=== PATIENT | female | born 1935 | race Caucasian/White ===

== ENCOUNTER 2017-04-04 10:21 | Emergency (ER) | payer MEDICARE, BC ==
[2017-04-04] MEDS ORDERED: Sodium Chloride 0.9% 10 ML Syringe FLUSH PRN (11:04)
[2017-04-04] MEDS ORDERED: Sodium Chloride 0.9% 1,000 ML IV SCH (11:15)
[2017-04-04 11:46] VITALS: BP 168/75
[2017-04-04 12:17] LABS: CHLORIDE,CL 98 mmol/L (98-107); SODIUM,NA 135 mmol/L (136-145)
[2017-04-04] MEDS ORDERED: Iopamidol 612 MG/ML 100 ML Bottle IVPUSH ONE (12:35)
[2017-04-04] MEDS ORDERED: Sodium Chloride 0.9% 100 ML IV SCH (12:45)
--- NOTE | 2017-04-04 14:56 | EDM.PDOC ---
ED HPI GENERAL MEDICAL PROBLEM - General Chief Complaint: General Stated Complaint: dizziness Time Seen by Provider: 04/04/17 10:51 Source of Information: Reports: Patient History Limitations: Reports: No Limitations - History of Present Illness INITIAL COMMENTS - FREE TEXT/NARRATIVE: Patient presents with complaints of dizziness, abdominal pain, and back pain. All of these symptoms have been chronic at times. Her complaint today is the dizziness. Nothing makes it better or worse. Denies any syncope or near syncope. She follows with Magaly Kelley. She does have her gall bladder, appendix has been removed. She denies any chest pain, headaches, arm or jaw pain. States her abdominal pain is central to lower right and described as pressure. She reports occasional nausea with it. No change in eating habits. No unexplained weight loss. She denies [place], CVA, COPD, asthma, diabetes, does have hypertension. She smokes 3-4 cigarettes daily. No alcohol or drugs. Takes Flecainide for PSVT. Onset: Today Onset Date: 04/04/17 Duration: Chronic Location: Reports: Abdomen Quality: Reports: Pressure Severity: Moderate Associated Symptoms: Reports: Other (dizziness, abdominal pain) - Related Data Allergies Allergy/AdvReac Type Severity Reaction Status Date / Time Penicillins Allergy Rash Verified 04/04/17 11:03 Home Meds: Home Meds Aspirin 81 mg DAILY 04/04/17 [History] Bisacodyl [Correctol] 5 mg DAILY PRN 04/04/17 [History] Flecainide [Tambocor] 100 mg PO BID 04/04/17 [History] Meloxicam [Meloxicam] 15 mg DAILY 04/04/17 [History] Multivitamin [Multivitamins] 1 cap DAILY 04/04/17 [History] Valsartan/Hydrochlorothiazide [Valsartan-Hctz 80-12.5 mg Tab] 0.5 tab DAILY [History] Past Medical History HEENT History: Reports: Other (See Below) Other HEENT History: otalgia of left ear Cardiovascular History: Reports: Hypertension, Other (See Below) Other Cardiovascular History: PSVT Gastrointestinal History: Reports: Chronic Constipation Musculoskeletal History: Reports: Back Pain, Chronic, Osteoarthritis, Osteoporosis, Other (See Below) Other Musculoskeletal History: polio Psychiatric History: Reports: Anxiety, Depression, Other (See Below) Other Psychiatric History: dysthymic disorder - Past Surgical History GI Surgical History: Reports: Appendectomy Female Surgical History: Reports: Hysterectomy, Other (See Below) Other Female Surgeries/Procedures: lumpectomy of breast(benign) Oncologic Surgical History: Reports: Lumpectomy Social & Family History - Tobacco Use Smoking Status *Q: Current Every Day Smoker Years of Tobacco use: 35 Packs/Tins Daily: 0.5 - Recreational Drug Use Recreational Drug Use: No ED ROS GENERAL - Review of Systems Review Of Systems: See Below Constitutional: Reports: No Symptoms HEENT: Reports: No Symptoms Respiratory: Reports: No Symptoms Cardiovascular: Reports: Lightheadedness Endocrine: Reports: No Symptoms GI/Abdominal: Reports: Abdominal Pain : Reports: No Symptoms Musculoskeletal: Reports: Back Pain Skin: Reports: No Symptoms Neurological: Reports: Dizziness Psychiatric: Reports: No Symptoms Hematologic/Lymphatic: Reports: No Symptoms Immunologic: Reports: No Symptoms ED EXAM, GENERAL - Physical Exam Exam: See Below Exam Limited By: No Limitations General Appearance: Alert, WD/WN, No Apparent Distress Eye Exam: Bilateral Eye: EOMI, PERRL Ears: Normal TMs Throat/Mouth: Normal Inspection, Normal Oropharynx Head: Atraumatic, Normocephalic Neck: Normal Inspection, Supple, Non-Tender Respiratory/Chest: No Respiratory Distress, Lungs Clear, Normal Breath Sounds, No Accessory Muscle Use, Chest Non-Tender Cardiovascular: Normal Peripheral Pulses, Regular Rate, Rhythm, No Edema, No Murmur Peripheral Pulses: 2+: Posterior Tibial (L), Posterior Tibial (R), Dorsalis Pedis (L), Dorsalis Pedis (R) GI/Abdominal: Normal Bowel Sounds, Soft, Non-Tender Back Exam: Normal Inspection Extremities: Normal Inspection, Normal Range of Motion, Non-Tender, No Pedal Edema, Normal Capillary Refill Neurological: Alert, Oriented, CN II-XII Intact, Normal Cognition, Normal Gait, Normal Reflexes, No Motor/Sensory Deficits Psychiatric: Normal Affect, Normal Mood Skin Exam: Warm, Dry, Intact Lymphatic: No Adenopathy Course - Vital Signs Last Recorded V/S: Last Vital Signs Temp 36.0 C 04/04/17 10:25 Pulse 79 04/04/17 11:25 Resp 20 04/04/17 10:25 BP 168/75 H 04/04/17 11:25 Pulse Ox 95 04/04/17 10:25 - Orders/Labs/Meds Orders: Active Orders 24 hr Category Date Time Status EKG Documentation Completion [RC] ROUTINE Care 04/04/17 11:04 Ordered Abdomen Pelvis wo Cont [CT] Stat Exams 04/04/17 12:24 Ordered Ang Chest [CT] Stat Exams 04/04/17 12:24 Ordered Sodium Chloride 0.9% @ 150 MLS/HR (1000ml) Med 04/04/17 11:15 Ordered Sodium Chloride 0.9% [Normal Saline] 1,000 ml IV ASDIRECTED Sodium Chloride 0.9% [Normal Saline] 100 ml Med 04/04/17 12:45 Active IV ASDIRECTED Sodium Chloride 0.9% [Saline Flush] Med 04/04/17 11:04 Ordered 10 ml FLUSH ASDIRECTED PRN Saline Lock Insert [OM.PC] Routine Oth 04/04/17 11:04 Ordered Medication Orders Sodium Chloride (Normal Saline) 1,000 mls @ 150 mls/hr IV ASDIRECTED YASMIN Last Admin: 04/04/17 11:20 Dose: 150 mls/hr Sodium Chloride (Normal Saline) 100 mls @ 3 mls/sec IV ASDIRECTED YASMIN Last Admin: 04/04/17 13:15 Dose: 3 mls/sec Sodium Chloride (Saline Flush) 10 ml FLUSH ASDIRECTED PRN PRN Reason: Keep Vein Open Labs: Laboratory Tests 04/04/17 04/04/17 04/04/17 Range/Units 11:20 11:20 11:20 WBC 9.9 (4.0-10.0) x10^3/uL RBC 4.09 (4.00-5.50) x10^6/uL Hgb 13.0 (12.0-16.0) g/dL Hct 38.1 (33.0-47.0) % MCV 93.2 H (78.0-93.0) fL MCH 31.8 (26.0-32.0) pg MCHC 34.1 (32.0-36.0) g/dL RDW Coeff of Altagracia 12.4 (10.0-15.0) % Plt Count 397 (130-400) x10^3/uL Neut % (Auto) 83.6 H (50.0-80.0) % Lymph % (Auto) 9.1 L (25.0-50.0) % [place] % (Auto) 7.0 (2.0-11.0) % Eos % (Auto) 0.1 (0.0-4.0) % Baso % (Auto) 0.2 (0.2-1.2) % PT 10.0 (10.0-12.8) SEC INR 0.9 L (2.0-3.5) D-Dimer, Quantitative 1.55 H (<=0.58) mg/LFEU Sodium 135 L (136-145) mmol/L Potassium 4.6 (3.5-5.1) mmol/L Chloride 98 (98-107) mmol/L Carbon Dioxide 32 (21-32) mmol/L BUN 22 H (7-18) mg/dL Creatinine 0.9 (0.55-1.02) mg/dL Est Cr Clr Drug Dosing 34.51 mL/min Estimated GFR (MDRD) 60 Glucose 139 H (74-106) mg/dL Lactic Acid (0.4-2.0) mmol/L Calcium 9.1 (8.5-10.1) mg/dL Corrected Calcium 9.26 (8.5-10.1) mg/dL Magnesium (1.8-2.4) mg/dL Total Bilirubin 0.3 (0.2-1.0) mg/dL AST 28 (15-37) U/L ALT 30 (14-59) U/L Alkaline Phosphatase 123 H (46-116) U/L Creatine Kinase 65 (26-192) U/L Creatine Kinase Index TNP CK-MB (CK-2) TNP Troponin I < 0.017 (<=0.056) ng/mL C-Reactive Protein < 0.2 (<=0.9) mg/dL B-Natriuretic Peptide 526 H (<=450) pg/mL Total Protein 8.0 (6.4-8.2) g/dL Albumin 3.8 (3.4-5.0) g/dL Globulin 4.2 Albumin/Globulin Ratio 0.90 TSH, Ultra Sensitive 2.178 (0.358-3.74) uIU/mL 04/04/17 04/04/17 Range/Units 11:20 11:20 WBC (4.0-10.0) x10^3/uL RBC (4.00-5.50) x10^6/uL Hgb (12.0-16.0) g/dL Hct (33.0-47.0) % MCV (78.0-93.0) fL MCH (26.0-32.0) pg MCHC (32.0-36.0) g/dL RDW Coeff of Altagracia (10.0-15.0) % Plt Count (130-400) x10^3/uL Neut % (Auto) (50.0-80.0) % Lymph % (Auto) (25.0-50.0) % [place] % (Auto) (2.0-11.0) % Eos % (Auto) (0.0-4.0) % Baso % (Auto) (0.2-1.2) % PT (10.0-12.8) SEC INR (2.0-3.5) D-Dimer, Quantitative (<=0.58) mg/LFEU Sodium (136-145) mmol/L Potassium (3.5-5.1) mmol/L Chloride (98-107) mmol/L Carbon Dioxide (21-32) mmol/L BUN (7-18) mg/dL Creatinine (0.55-1.02) mg/dL Est Cr Clr Drug Dosing mL/min Estimated GFR (MDRD) Glucose (74-106) mg/dL Lactic Acid 1.4 (0.4-2.0) mmol/L Calcium (8.5-10.1) mg/dL Corrected Calcium (8.5-10.1) mg/dL Magnesium 1.9 (1.8-2.4) mg/dL Total Bilirubin (0.2-1.0) mg/dL AST (15-37) U/L ALT (14-59) U/L Alkaline Phosphatase (46-116) U/L Creatine Kinase (26-192) U/L Creatine Kinase Index CK-MB (CK-2) Troponin I (<=0.056) ng/mL C-Reactive Protein (<=0.9) mg/dL B-Natriuretic Peptide (<=450) pg/mL Total Protein (6.4-8.2) g/dL Albumin (3.4-5.0) g/dL Globulin Albumin/Globulin Ratio TSH, Ultra Sensitive (0.358-3.74) uIU/mL Meds: Medications Generic Name Dose Route Start Last Admin Trade Name Freq PRN Reason Stop Dose Admin Sodium Chloride 1,000 mls @ 150 mls/hr 04/04/17 11:15 04/04/17 11:20 Normal Saline IV 150 mls/hr ASDIRECTED YASMIN Administration Sodium Chloride 100 mls @ 3 mls/sec 04/04/17 12:45 04/04/17 13:15 Normal Saline IV 3 mls/sec ASDIRECTED YASMIN Administration Sodium Chloride 10 ml 04/04/17 11:04 Saline Flush FLUSH ASDIRECTED PRN Keep Vein Open Discontinued Medications Generic Name Dose Route Start Last Admin Trade Name Freq PRN Reason Stop Dose Admin Iopamidol 85 ml 04/04/17 12:35 04/04/17 13:10 Isovue-300 (61%) IVPUSH 04/04/17 12:36 85 ml ONETIME ONE Administration Departure - Departure Time of Disposition: 15:08 Disposition: Home, Self-Care 01 Condition: Good Clinical Impression: Dizziness, nonspecific, Abdominal pain in female patient, Pelvic cyst - Discharge Information Forms: ED Department Discharge Additional Instructions: MRI scheduled for 09 on Friday morning of the right pelvic cyst seen on your CT today. Results will be sent to Magaly Kelley. Please follow up with her or her supervising doctor. You may also try prilosec or nexium for 2-3 weeks to see if this helps your abdominal pain. Follow up with your primary concerning this as well. Your cardiac workup, PE workup, abdominal CT results all did not identify reasons for the dizziness or abdominal pain. Recommend follow up with your primary doctor with possible referrals to neurology and cardiology to rule out structural or electrical causes for your dizziness. There are times that a cause for dizziness just isn't found. Your electrolytes were largely normal. Please call us with any questions or concerns. - Problem List & Annotations (1) Abdominal pain in female patient SNOMED Code(s): 45685948 Code(s): R10.9 - UNSPECIFIED ABDOMINAL PAIN Status: Acute Priority: Low Current Visit: Yes (2) Dizziness, nonspecific SNOMED Code(s): 605343170, 086073611 Code(s): R42 - DIZZINESS AND GIDDINESS Status: Acute Priority: Low Current Visit: Yes - Problem List Review Problem List Initiated/Reviewed/Updated: Yes - My Orders Last 24 Hours: My Active Orders 04/04/17 11:04 EKG Documentation Completion [RC] ROUTINE Sodium Chloride 0.9% [Saline Flush] 10 ml FLUSH ASDIRECTED PRN Saline Lock Insert [OM.PC] Routine 04/04/17 11:15 Sodium Chloride 0.9% @ 150 MLS/HR (1000ml) Sodium Chloride 0.9% [Normal Saline] 1,000 ml IV ASDIRECTED 04/04/17 12:24 Abdomen Pelvis wo Cont [CT] Stat Ang Chest [CT] Stat 04/04/17 12:45 Sodium Chloride 0.9% [Normal Saline] 100 ml IV ASDIRECTED - Assessment/Plan Last 24 Hours: My Active Orders 04/04/17 11:04 EKG Documentation Completion [RC] ROUTINE Sodium Chloride 0.9% [Saline Flush] 10 ml FLUSH ASDIRECTED PRN Saline Lock Insert [OM.PC] Routine 04/04/17 11:15 Sodium Chloride 0.9% @ 150 MLS/HR (1000ml) Sodium Chloride 0.9% [Normal Saline] 1,000 ml IV ASDIRECTED 04/04/17 12:24 Abdomen Pelvis wo Cont [CT] Stat Ang Chest [CT] Stat 04/04/17 12:45 Sodium Chloride 0.9% [Normal Saline] 100 ml IV ASDIRECTED Assessment:: dizziness abdominal pain Plan: MRI scheduled for 0900 on Friday morning of the right pelvic cyst seen on your CT today. Results will be sent to Magaly Kelley. Please follow up with her or her supervising doctor. You may also try prilosec or nexium for 2-3 weeks to see if this helps your abdominal pain. Follow up with your primary concerning this as well. Your cardiac workup, PE workup, abdominal CT results all did not identify reasons for the dizziness or abdominal pain. Recommend follow up with your primary doctor with possible referrals to neurology and cardiology to rule out structural or electrical causes for your dizziness. There are times that a cause for dizziness just isn't found. Your electrolytes were largely normal. Please call us with any questions or concerns.
== END 2017-04-04 15:05 | disposition home or self-care (01) ==
LOC: VM.ED 10:21
DX: R42 Dizziness and giddiness (principal); N94.89 Other specified conditions associated with female genital organs and menstrual cycle; I10 Essential (primary) hypertension; K59.00 Constipation, unspecified; F17.210 Nicotine dependence, cigarettes, uncomplicated; M81.0 Age-related osteoporosis without current pathological fracture; M19.90 Unspecified osteoarthritis, unspecified site; G89.29 Other chronic pain; Z88.0 Allergy status to penicillin; Z79.82 Long term (current) use of aspirin; Z79.899 Other long term (current) drug therapy; Z98.890 Other specified postprocedural states; Z90.49 Acquired absence of other specified parts of digestive tract; Z90.710 Acquired absence of both cervix and uterus; Z90.10 Acquired absence of unspecified breast and nipple
CPT/HCPCS: 71275; 74176; 80053; 82550; 83605; 83735; 83880; 84443; 84484; 85025; 85379; 85610; 86140; 93005; 96360; 96361; 99284; J7030; J7050; Q9967

== ENCOUNTER 2019-05-12 07:53 | Inpatient (IN) | payer MEDICARE, BC ==
[2019-05-12] MEDS ORDERED: Sodium Chloride 0.9% 10 ML Syringe FLUSH PRN (08:12)
[2019-05-12] MEDS ORDERED: Sodium Chloride 0.9% 1,000 ML IV ONE (08:16)
[2019-05-12 09:04] LABS: CHLORIDE,CL 93 mmol/L (98-107); SODIUM,NA 130 mmol/L (136-145)
[2019-05-12] MEDS ORDERED: Iopamidol 612 MG/ML 100 ML Bottle IVPUSH ONE (09:21)
--- NOTE | 2019-05-12 09:28 | EDM.PDOC ---
ED HPI GENERAL MEDICAL PROBLEM - General Chief Complaint: General Stated Complaint: BREATHING ISSUES Time Seen by Provider: 05/12/19 08:00 Source of Information: Reports: Patient, Family History Limitations: Reports: No Limitations - History of Present Illness INITIAL COMMENTS - FREE TEXT/NARRATIVE: Pt. presents to ER with complaints of "not feeling well" and global weakness for several months. She denies any focal neuro symptoms such as unilateral weakness, Headache, or difficulty with speech/ambulation. Pt. also complains of mid upper abdominal pain. She states that she has been having bowel movements daily, but states that they are hard. Denies any loose stools or diarrhea. No fever or chills. No melena, hematochezia, or hematemesis. Pt. denies any chest pain or shortness of breath. No jaw, arm, neck or back pain. Family is concerned that the patient is unable to care for herself anymore. She has to go down on her backside when she uses stairs. They stated that the patient is been getting progressively weaker and they feel that the patient has been unable to take care of herself at home anymore, but state that she is weaker over the past 1-2 days. Onset: Today Onset Date: 05/11/19 Location: Reports: Abdomen, Generalized - Related Data Allergies Allergy/AdvReac Type Severity Reaction Status Date / Time Penicillins Allergy Rash Verified 05/12/19 08:12 Home Meds: Home Meds Aspirin 81 mg PO DAILY 04/04/17 [History] Bisacodyl [Correctol] 5 mg PO DAILY PRN 04/04/17 [History] Flecainide [Tambocor] 100 mg PO BID 04/04/17 [History] Meloxicam 7.5 mg PO DAILY 04/04/17 [History] Multivitamin [Multivitamins] 1 cap PO DAILY 04/04/17 [History] Hydrochlorothiazide [Microzide] 6.25 mg PO DAILY 05/12/19 [History] Past Medical History HEENT History: Reports: Other (See Below) Other HEENT History: otalgia of left ear Cardiovascular History: Reports: Hypertension, Other (See Below) Other Cardiovascular History: PSVT Gastrointestinal History: Reports: Chronic Constipation Musculoskeletal History: Reports: Back Pain, Chronic, Osteoarthritis, Osteoporosis, Other (See Below) Other Musculoskeletal History: polio Psychiatric History: Reports: Anxiety, Depression, Other (See Below) Other Psychiatric History: dysthymic disorder - Past Surgical History GI Surgical History: Reports: Appendectomy Female Surgical History: Reports: Hysterectomy, Other (See Below) Other Female Surgeries/Procedures: lumpectomy of breast(benign) Oncologic Surgical History: Reports: Lumpectomy Social & Family History - Tobacco Use Smoking Status *Q: Unknown Ever Smoked ED ROS GENERAL - Review of Systems Review Of Systems: See Below Constitutional: Reports: No Symptoms HEENT: Reports: No Symptoms Respiratory: Reports: No Symptoms Cardiovascular: Reports: No Symptoms Endocrine: Reports: No Symptoms GI/Abdominal: Reports: Abdominal Pain : Reports: No Symptoms Musculoskeletal: Reports: No Symptoms Skin: Reports: No Symptoms Neurological: Reports: Weakness Psychiatric: Reports: No Symptoms Hematologic/Lymphatic: Reports: No Symptoms Immunologic: Reports: No Symptoms ED EXAM, GENERAL - Physical Exam Exam: See Below Exam Limited By: No Limitations General Appearance: Alert, WD/WN, No Apparent Distress Eye Exam: Bilateral Eye: EOMI, Normal Fundi, Normal Inspection, PERRL Ears: Normal External Exam, Normal Canal, Hearing Grossly Normal, Normal TMs Ear Exam: Bilateral Ear: Auricle Normal, Canal Normal, TM normal Nose: Normal Inspection, No Blood Throat/Mouth: Normal Inspection, Normal Lips, Normal Oropharynx, Normal Voice, No Airway Compromise Head: Atraumatic, Normocephalic Neck: Normal Inspection, Supple, Non-Tender, Full Range of Motion Respiratory/Chest: No Respiratory Distress, Lungs Clear, Normal Breath Sounds, No Accessory Muscle Use, Chest Non-Tender Cardiovascular: Normal Peripheral Pulses, Regular Rate, Rhythm, No Edema, No Murmur Peripheral Pulses: 4+: Radial (L), Dorsalis Pedis (L), Dorsalis Pedis (R) GI/Abdominal: Soft, Non-Tender, No Organomegaly, No Distention, No Abnormal Bruit, Other (bowel sounds hyperactive) (Female) Exam: Deferred Rectal (Female) Exam: Deferred Back Exam: Normal Inspection, Full Range of Motion Extremities: Normal Inspection, Normal Range of Motion, Non-Tender, No Pedal Edema, Normal Capillary Refill Neurological: Alert, Oriented, CN II-XII Intact, Normal Cognition, Normal Gait, Normal Reflexes, No Motor/Sensory Deficits Psychiatric: Normal Affect, Anxious Skin Exam: Warm, Dry, Intact, Normal Color, No Rash Lymphatic: No Adenopathy EKG INTERPRETATION Rhythm: NSR [place]: Normal P-Wave: Present QRS: Normal ST-T: Normal QT: Normal Course - Vital Signs Last Recorded V/S: Last Vital Signs Temp 36.8 C 05/12/19 07:57 Pulse 100 05/12/19 07:57 Resp 20 05/12/19 07:57 BP 161/90 H 05/12/19 07:57 Pulse Ox 95 05/12/19 07:57 - Orders/Labs/Meds Orders: Active Orders 24 hr Category Date Time Status Patient Status [ADT] Routine ADT 05/12/19 10:36 Ordered EKG Documentation Completion [RC] STAT Care 05/12/19 08:15 Active Sodium Chloride 0.9% [Saline Flush] Med 05/12/19 08:12 Active 10 ml FLUSH ASDIRECTED PRN Peripheral IV Insertion Adult [OM.PC] Routine Oth 05/12/19 08:13 Ordered Medication Orders Sodium Chloride (Saline Flush) 10 ml FLUSH ASDIRECTED PRN PRN Reason: Keep Vein Open Labs: Laboratory Tests 05/12/19 05/12/19 05/12/19 Range/Units 08:25 08:25 08:25 WBC 14.5 H (4.0-10.0) x10^3/uL RBC 4.35 (4.00-5.50) x10^6/uL Hgb 13.9 (12.0-16.0) g/dL Hct 40.1 (33.0-47.0) % MCV 92.2 (78.0-93.0) fL MCH 32.0 (26.0-32.0) pg MCHC 34.7 (32.0-36.0) g/dL RDW Coeff of Altagracia 12.0 (10.0-15.0) % Plt Count 472 H D (130-400) x10^3/uL Neut % (Auto) 87.0 H (50.0-80.0) % Lymph % (Auto) 5.8 L (25.0-50.0) % Lyman % (Auto) 6.8 (2.0-11.0) % Eos % (Auto) 0.3 (0.0-4.0) % Baso % (Auto) 0.1 L (0.2-1.2) % PT 9.9 L (10.0-12.8) SEC INR 0.9 L (2.0-3.5) Sodium 130 L (136-145) mmol/L Potassium 5.0 (3.5-5.1) mmol/L Chloride 93 L (98-107) mmol/L Carbon Dioxide 31 (21-32) mmol/L Anion Gap 11.0 (10-20) mmol/L BUN 21 H (7-18) mg/dL Creatinine 1.1 H (0.55-1.02) mg/dL Est Cr Clr Drug Dosing TNP Estimated GFR (MDRD) 47 Glucose 156 H (74-106) mg/dL Calcium 10.2 H (8.5-10.1) mg/dL Corrected Calcium 10.60 H (8.5-10.1) mg/dL Phosphorus 3.9 (2.6-4.7) mg/dL Magnesium 1.8 (1.8-2.4) mg/dL Total Bilirubin 0.4 (0.2-1.0) mg/dL AST 30 (15-37) U/L ALT 37 (14-59) U/L Alkaline Phosphatase 154 H (46-116) U/L Troponin I < 0.017 (<=0.056) ng/mL C-Reactive Protein 3.0 H (<=0.9) mg/dL Total Protein 7.8 (6.4-8.2) g/dL Albumin 3.5 (3.4-5.0) g/dL Globulin 4.3 Albumin/Globulin Ratio 0.81 Amylase 66 (25-115) U/L Lipase 217 (73-393) U/L TSH, Ultra Sensitive 5.129 H (0.358-3.74) uIU/mL Urine Color (YELLOW) Urine Appearance (CLEAR) Urine pH (5.0-8.0) Ur Specific [place] Urine Protein (NEGATIVE) mg/dL Urine Glucose (UA) (NEGATIVE) mg/dL Urine Ketones (NEGATIVE) mg/dL Urine Occult Blood (NEGATIVE) Urine Nitrite (NEGATIVE) Urine Bilirubin (NEGATIVE) Urine Urobilinogen (0.2) EU/dL Ur Leukocyte Esterase (NEGATIVE) Urine RBC (NOT SEEN) /HPF Urine WBC (NOT SEEN) /HPF Ur Squamous Epith Cells (NEGATIVE) /HPF Urine Bacteria (NEGATIVE) /HPF Urine Mucus (NEGATIVE) /LPF 05/12/19 Range/Units 10:09 WBC (4.0-10.0) x10^3/uL RBC (4.00-5.50) x10^6/uL Hgb (12.0-16.0) g/dL Hct (33.0-47.0) % MCV (78.0-93.0) fL MCH (26.0-32.0) pg MCHC (32.0-36.0) g/dL RDW Coeff of Altagracia (10.0-15.0) % Plt Count (130-400) x10^3/uL Neut % (Auto) (50.0-80.0) % Lymph % (Auto) (25.0-50.0) % Lyman % (Auto) (2.0-11.0) % Eos % (Auto) (0.0-4.0) % Baso % (Auto) (0.2-1.2) % PT (10.0-12.8) SEC INR (2.0-3.5) Sodium (136-145) mmol/L Potassium (3.5-5.1) mmol/L Chloride (98-107) mmol/L Carbon Dioxide (21-32) mmol/L Anion Gap (10-20) mmol/L BUN (7-18) mg/dL Creatinine (0.55-1.02) mg/dL Est Cr Clr Drug Dosing Estimated GFR (MDRD) Glucose (74-106) mg/dL Calcium (8.5-10.1) mg/dL Corrected Calcium (8.5-10.1) mg/dL Phosphorus (2.6-4.7) mg/dL Magnesium (1.8-2.4) mg/dL Total Bilirubin (0.2-1.0) mg/dL AST (15-37) U/L ALT (14-59) U/L Alkaline Phosphatase (46-116) U/L Troponin I (<=0.056) ng/mL C-Reactive Protein (<=0.9) mg/dL Total Protein (6.4-8.2) g/dL Albumin (3.4-5.0) g/dL Globulin Albumin/Globulin Ratio Amylase (25-115) U/L Lipase (73-393) U/L TSH, Ultra Sensitive (0.358-3.74) uIU/mL Urine Color Yellow (YELLOW) Urine Appearance Cloudy H (CLEAR) Urine pH 6.5 (5.0-8.0) Ur Specific [place] 1.010 Urine Protein Negative (NEGATIVE) mg/dL Urine Glucose (UA) Negative (NEGATIVE) mg/dL Urine Ketones Negative (NEGATIVE) mg/dL Urine Occult Blood Trace-lysed H (NEGATIVE) Urine Nitrite Positive H (NEGATIVE) Urine Bilirubin Negative (NEGATIVE) Urine Urobilinogen 0.2 (0.2) EU/dL Ur Leukocyte Esterase Small H (NEGATIVE) Urine RBC 5-10 H (NOT SEEN) /HPF Urine WBC 10-20 H (NOT SEEN) /HPF Ur Squamous Epith Cells Few H (NEGATIVE) /HPF Urine Bacteria Moderate H (NEGATIVE) /HPF Urine Mucus Few H (NEGATIVE) /LPF Meds: Medications Generic Name Dose Route Start Last Admin Trade Name Freq PRN Reason Stop Dose Admin Sodium Chloride 10 ml 05/12/19 08:12 Saline Flush FLUSH ASDIRECTED PRN Keep Vein Open Discontinued Medications Generic Name Dose Route Start Last Admin Trade Name Freq PRN Reason Stop Dose Admin Ceftriaxone Sodium 2 gm 05/12/19 10:29 Rocephin IVPUSH 05/12/19 10:30 STAT ONE Sodium Chloride 1,000 mls @ 500 mls/hr 05/12/19 08:16 05/12/19 08:33 Normal Saline IV 05/12/19 10:15 500 mls/hr .BOLUS ONE Administration Iopamidol 100 ml 05/12/19 09:21 05/12/19 09:30 Isovue-300 (61%) IVPUSH 05/12/19 09:22 100 ml ONETIME ONE Administration - Radiology Interpretation Free Text/Narrative:: CT chest, abdomen and pelvis obtained. ? interstitial pneumonia. No infiltrate, failure pattern, nodules of masses noted. Malignancy vs. benign ulcers of stomach with inflammatory response. Mass in L breast. Departure - Departure Time of Disposition: 10:41 Disposition: Admitted As Inpatient 65 Clinical Impression: UTI (urinary tract infection), Hyponatremia - Discharge Information Referrals: Magaly Kelley PA-C [Primary Care Provider] - Forms: ED Department Discharge - Problem List Review Problem List Initiated/Reviewed/Updated: Yes - My Orders Last 24 Hours: My Active Orders 05/12/19 08:12 Sodium Chloride 0.9% [Saline Flush] 10 ml FLUSH ASDIRECTED PRN 05/12/19 08:13 Peripheral IV Insertion Adult [OM.PC] Routine 05/12/19 08:15 EKG Documentation Completion [RC] STAT 05/12/19 10:36 Patient Status [ADT] Routine - Assessment/Plan Last 24 Hours: My Active Orders 05/12/19 08:12 Sodium Chloride 0.9% [Saline Flush] 10 ml FLUSH ASDIRECTED PRN 05/12/19 08:13 Peripheral IV Insertion Adult [OM.PC] Routine 05/12/19 08:15 EKG Documentation Completion [RC] STAT 05/12/19 10:36 Patient Status [ADT] Routine Plan: Pt. will be admitted acutely. I spoke with Dr. Perez regarding the patient. The primary cause of her weakness is likely secondary to UTI and hyponatremia. The stomach ulceration and breast masses will require further imaging on an outpatient basis. She was given rocephin 2 gm IV. She will be given protonix 80mg IV. Discussed findings with patient and family. All questions were answered. Pt. is unsure of code status. Pt. advised that her children know and they will be returning shortly.
--- NOTE | 2019-05-12 09:52 | CR ---
[id number] RAD/RAD Abd Flat and Upright 2V EXAM: RAD Abd Flat and Upright 2V INDICATION: ABDOMINAL PAIN. COMPARISON: March 2017. DISCUSSION: Unobstructed bowel gas pattern. No radiographically evident pneumoperitoneum. Evaluation of lungs demonstrates sequela of chronic interstitial lung disease, as seen on CT from 2017. IMPRESSION: No acute findings in the abdomen. Alan Oro MD 05/12/19 0951 Thank you for allowing us to participate in the care of your patient.
--- NOTE | 2019-05-12 10:12 | CT ---
[id number] CT/CT Chest Abdomen Pelvis W IV EXAM: CHEST ABDOMEN AND PELVIS CT WITH CONTRAST INDICATION: Epigastric abdominal pain and elevated white blood cell count. COMPARISON: April 04, 2017. DISCUSSION: interstitial pneumonia pattern. Mild biapical paraseptal emphysema. Bronchial wall thickening. No infiltrates, nodule, or masses identified. No adenopathy. No pleural or pericardial effusion. Mild ectasia of the ascending aorta which is up to 3 5 mm in diameter. 10 mm retroareolar and 11 mm lower outer quadrant left breast masses are suggested. Consider diagnostic mammogram and ultrasound. Abdomen and pelvis: There is significant wall thickening and edema involving the lesser curvature of the stomach with at least 2 areas of apparent ulceration. These findings could relate to an ulcerated malignancy or ulcers with significant inflammatory reaction. There is infiltration of the surrounding fat and there is a small volume of free fluid in the left paracolic gutter and extending into the pelvis. No free air is identified. Scattered atherosclerotic plaque in the aorta and its major branches. Mild fatty infiltration of the liver is suggested. The pancreas, spleen, adrenal glands, kidneys and bowel are normal in appearance. Chronic remodeling of the femoral head and right acetabulum which could be from prior trauma or avascular necrosis. Right hip joint effusion, chronic subluxation and advanced degenerative changes. IMPRESSION: 1. Ulcerated malignancy versus benign ulcers of the lesser curvature of the stomach with inflammatory response. There is a small volume of free fluid in the adjacent left upper quadrant with extension into the left paracolic gutter and pelvis. 2. The left breast contains a couple of small enhancing masses. Consider dedicated diagnostic mammogram and ultrasound. Micah Quintero MD 05/12/19 1011 Thank you for allowing us to participate in the care of your patient.
[2019-05-12] MEDS ORDERED: cefTRIAXone 2 GM Vial IVPUSH ONE (10:29)
[2019-05-12] MEDS ORDERED: BISACODYL 5 MG PO PRN (11:35)
[2019-05-12] MEDS ORDERED: Carvedilol 12.5 MG Tab PO SCH (11:36)
[2019-05-12] MEDS ORDERED: Bisacodyl 5 MG Tab PO PRN (11:46)
[2019-05-12] MEDS: Pantoprazole 40 MG Tab.CR PO SCH (12:45)
[2019-05-12] MEDS ORDERED: Ondansetron 4 MG/2 ML SDV IV PRN (15:18)
[2019-05-12] MEDS ORDERED: HYDROmorphone 1 MG/ML Syringe IVPUSH PRN (15:18)
[2019-05-12] MEDS ORDERED: Acetaminophen 325 MG Tab PO PRN (15:18)
--- NOTE | 2019-05-12 15:31 | PCM.HP ---
H&P History of Present Illness - General Date of Service: 05/12/19 Admit Problem/Dx: Admission Diagnosis/Problem Admission Diagnosis/Problem UTI, Urinary tract infectious disease Source of Information: Patient, Old Records - History of Present Illness Initial Comments - Free Text/Narative: History of present illness: Patient was admitted from the ER for weakness and not feeling well largely NOS. This been going on for past number months. She generally feels more weak past week or two. She notes she's been having some stomach upset for past number of months. Denies any nausea vomiting or melena. Weight is remained pretty stable. She is on chronic meloxicam for osteoarthritis. Denies other NSAID use. Occasionally will take Tylenol with some relief. She is on chronic losartan and hydrochlorothiazide for blood pressure. She thinks these may be upsetting her stomach. She some chronic flecainide for remote history of SVT about 30 years ago. Stable for some time. Denies any cough dyspnea dysuria or fever. Past medical history: SVT, osteoporosis, hypertension, osteoarthritis, chronic smoking, low back pain, constipation. Medications: Flecainide meloxicam Susan lax losartan Hydrocort thiazide Duca lax multivitamin calcium with vitamin D. Allergy as reported as rash from penicillin. Smokes about a quarter pack per day. Lives alone but her family is nearby. Parents seem to largely of old age. She has one daughter who had ovarian cancer. Denies any family history of breast or GI cancer. Review of systems: Denies fever denies weight change denies chest pain denies dyspnea denies vomiting denies dysphasia some stomach upset but no abdominal pain really per se. Denies melena denies dysuria denies peripheral edema. Physical exam. Alert oriented no acute distress. Blood pressure running a bit high, oxygen temp pulse otherwise normal. Alert oriented no acute distress oral mucosa pink and moist heart and lungs clear to auscultation abdomen soft with just mild epigastric tenderness. Extremities warm well perfused without edema. She has pain-free range of motion bilateral hips and knees. CT and lab results were reviewed. Assessment and plan: #1. Chronic GI upset without melena vomiting or dysphasia. CT shows peptic ulcer disease versus possible mass in the stomach. DC meloxicam. Can use Tylenol as needed. Start Protonix. There is no sign of any active bleeding with this. We'll try to Hemoccult stool but this been going on for some time and she has no anemia. We have discussed that EGD would be recommended outpatient, so far she is reluctant to do any workup for this. #2. She has a mild hyponatremia which may be contributing some to her not feeling well. I would suspect this mostly from hydrochlorothiazide, ARB could be contributing. We'll discontinue these. Given her history of SVT will start beta adriana instead, coreg Monitor blood pressure which is a bit high currently. #3. Pyuria, nonspecific. Denies any dysuria. Rocephin okay for now. #4. Questionable mild pneumonitis by CT, asymptomatic, mild white count. Again is nonspecific. Rocephin per above. #5. Incidental L breast nodules by CT. She reports benign biopsy of this breast with benign lesions in the past. Last mammogram I have is from 2010. Again she is loath to do much for workup for this. I'll see if radiology can compare past mammogram to current CT somehow. Otherwise consider breast clinic referral based on her personal wishes. #6. 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 She is asymptomatic here as well. Unless she was having discomfort I don't see indication for ortho referral at this time. PT to eval gait. #7. Generalized weakness. We will have PT evaluate her. We'll have healthcare social worker evaluate her situation otherwise she seems completely mentally fit, would presume she will return to her home environment. #8. I feel DVT prophylaxis is probably culture ended complicated currently by her probable peptic ulcer disease along with the fact that she seems to be basically at her baseline of activity level. - Related Data Allergies/Adverse Reactions: Allergies Allergy/AdvReac Type Severity Reaction Status Date / Time Penicillins Allergy Rash Verified 05/12/19 08:12 Home Medications: Home Meds Bisacodyl [Correctol] 5 mg PO DAILY PRN 04/04/17 [History] Flecainide [Tambocor] 100 mg PO BID 04/04/17 [History] Meloxicam 7.5 mg PO DAILY 04/04/17 [History] Multivitamin [Multivitamins] 1 cap PO DAILY 04/04/17 [History] Calcium Carbonate/Vitamin D3 [Calcium Carbonate/Vitamin D 600 MG-200 Unit] 1 tab PO BID 05/12/19 [History] Hydrochlorothiazide [Microzide] 6.25 mg PO DAILY 05/12/19 [History] Losartan [Cozaar] 50 mg PO DAILY 05/12/19 [History] Polyethylene Glycol 3350 [MiraLAX] 2 tbs PO DAILY 05/12/19 [History] Past Medical History HEENT History: Reports: Other (See Below) Other HEENT History: otalgia of left ear Cardiovascular History: Reports: Hypertension, Other (See Below) Other Cardiovascular History: PSVT Gastrointestinal History: Reports: Chronic Constipation Musculoskeletal History: Reports: Back Pain, Chronic, Osteoarthritis, Osteoporosis, Other (See Below) Other Musculoskeletal History: polio Psychiatric History: Reports: Anxiety, Depression, Other (See Below) Other Psychiatric History: dysthymic disorder - Past Surgical History GI Surgical History: Reports: Appendectomy Female Surgical History: Reports: Hysterectomy, Other (See Below) Other Female Surgeries/Procedures: lumpectomy of breast(benign) Oncologic Surgical History: Reports: Lumpectomy Social & Family History - Family History Family Medical History: Noncontributory - Tobacco Use Smoking Status *Q: Unknown Ever Smoked Years of Tobacco use: 50 Packs/Tins Daily: 1 Used Tobacco, but Quit: No - Caffeine Use Caffeine Use: Reports: Coffee - Recreational Drug Use Recreational Drug Use: No H&P Review of Systems - Review of Systems: Review Of Systems: See Below Exam - Exam Exam: See Below - Vital Signs Vital Signs: Last Vital Signs Temp 37.4 C 05/12/19 14:00 Pulse 80 05/12/19 14:00 Resp 16 05/12/19 14:00 BP 121/69 05/12/19 14:00 Pulse Ox 95 05/12/19 14:00 Weight: 42.638 kg - Patient Data Lab Results Last 24 hrs: Laboratory Results - last 24 hr 05/12/19 05/12/19 05/12/19 Range/Units 08:25 08:25 08:25 WBC 14.5 H (4.0-10.0) x10^3/uL RBC 4.35 (4.00-5.50) x10^6/uL Hgb 13.9 (12.0-16.0) g/dL Hct 40.1 (33.0-47.0) % MCV 92.2 (78.0-93.0) fL MCH 32.0 (26.0-32.0) pg MCHC 34.7 (32.0-36.0) g/dL RDW Coeff of Altagracia 12.0 (10.0-15.0) % Plt Count 472 H D (130-400) x10^3/uL Neut % (Auto) 87.0 H (50.0-80.0) % Lymph % (Auto) 5.8 L (25.0-50.0) % [place] % (Auto) 6.8 (2.0-11.0) % Eos % (Auto) 0.3 (0.0-4.0) % Baso % (Auto) 0.1 L (0.2-1.2) % PT 9.9 L (10.0-12.8) SEC INR 0.9 L (2.0-3.5) Sodium 130 L (136-145) mmol/L Potassium 5.0 (3.5-5.1) mmol/L Chloride 93 L (98-107) mmol/L Carbon Dioxide 31 (21-32) mmol/L Anion Gap 11.0 (10-20) mmol/L BUN 21 H (7-18) mg/dL Creatinine 1.1 H (0.55-1.02) mg/dL Est Cr Clr Drug Dosing TNP Estimated GFR (MDRD) 47 Glucose 156 H (74-106) mg/dL Calcium 10.2 H (8.5-10.1) mg/dL Corrected Calcium 10.60 H (8.5-10.1) mg/dL Phosphorus 3.9 (2.6-4.7) mg/dL Magnesium 1.8 (1.8-2.4) mg/dL Total Bilirubin 0.4 (0.2-1.0) mg/dL AST 30 (15-37) U/L ALT 37 (14-59) U/L Alkaline Phosphatase 154 H (46-116) U/L Troponin I < 0.017 (<=0.056) ng/mL C-Reactive Protein 3.0 H (<=0.9) mg/dL Total Protein 7.8 (6.4-8.2) g/dL Albumin 3.5 (3.4-5.0) g/dL Globulin 4.3 Albumin/Globulin Ratio 0.81 Amylase 66 (25-115) U/L Lipase 217 (73-393) U/L TSH, Ultra Sensitive 5.129 H (0.358-3.74) uIU/mL Urine Color (YELLOW) Urine Appearance (CLEAR) Urine pH (5.0-8.0) Ur Specific [place] Urine Protein (NEGATIVE) mg/dL Urine Glucose (UA) (NEGATIVE) mg/dL Urine Ketones (NEGATIVE) mg/dL Urine Occult Blood (NEGATIVE) Urine Nitrite (NEGATIVE) Urine Bilirubin (NEGATIVE) Urine Urobilinogen (0.2) EU/dL Ur Leukocyte Esterase (NEGATIVE) Urine RBC (NOT SEEN) /HPF Urine WBC (NOT SEEN) /HPF Ur Squamous Epith Cells (NEGATIVE) /HPF Urine Bacteria (NEGATIVE) /HPF Urine Mucus (NEGATIVE) /LPF 05/12/19 Range/Units 10:09 WBC (4.0-10.0) x10^3/uL RBC (4.00-5.50) x10^6/uL Hgb (12.0-16.0) g/dL Hct (33.0-47.0) % MCV (78.0-93.0) fL MCH (26.0-32.0) pg MCHC (32.0-36.0) g/dL RDW Coeff of Altagracia (10.0-15.0) % Plt Count (130-400) x10^3/uL Neut % (Auto) (50.0-80.0) % Lymph % (Auto) (25.0-50.0) % [place] % (Auto) (2.0-11.0) % Eos % (Auto) (0.0-4.0) % Baso % (Auto) (0.2-1.2) % PT (10.0-12.8) SEC INR (2.0-3.5) Sodium (136-145) mmol/L Potassium (3.5-5.1) mmol/L Chloride (98-107) mmol/L Carbon Dioxide (21-32) mmol/L Anion Gap (10-20) mmol/L BUN (7-18) mg/dL Creatinine (0.55-1.02) mg/dL Est Cr Clr Drug Dosing Estimated GFR (MDRD) Glucose (74-106) mg/dL Calcium (8.5-10.1) mg/dL Corrected Calcium (8.5-10.1) mg/dL Phosphorus (2.6-4.7) mg/dL Magnesium (1.8-2.4) mg/dL Total Bilirubin (0.2-1.0) mg/dL AST (15-37) U/L ALT (14-59) U/L Alkaline Phosphatase (46-116) U/L Troponin I (<=0.056) ng/mL C-Reactive Protein (<=0.9) mg/dL Total Protein (6.4-8.2) g/dL Albumin (3.4-5.0) g/dL Globulin Albumin/Globulin Ratio Amylase (25-115) U/L Lipase (73-393) U/L TSH, Ultra Sensitive (0.358-3.74) uIU/mL Urine Color Yellow (YELLOW) Urine Appearance Cloudy H (CLEAR) Urine pH 6.5 (5.0-8.0) Ur Specific [place] 1.010 Urine Protein Negative (NEGATIVE) mg/dL Urine Glucose (UA) Negative (NEGATIVE) mg/dL Urine Ketones Negative (NEGATIVE) mg/dL Urine Occult Blood Trace-lysed H (NEGATIVE) Urine Nitrite Positive H (NEGATIVE) Urine Bilirubin Negative (NEGATIVE) Urine Urobilinogen 0.2 (0.2) EU/dL Ur Leukocyte Esterase Small H (NEGATIVE) Urine RBC 5-10 H (NOT SEEN) /HPF Urine WBC 10-20 H (NOT SEEN) /HPF Ur Squamous Epith Cells Few H (NEGATIVE) /HPF Urine Bacteria Moderate H (NEGATIVE) /HPF Urine Mucus Few H (NEGATIVE) /LPF Result Diagrams: 05/12/19 08:25 05/12/19 08:25 *Q Meaningful Use (ADM) - VTE *Q VTE Anticoagulation Contraindications: Medical/Procedure Contrai Problem List Initiated/Reviewed/Updated: Yes Orders Last 24hrs: Active Orders 24 hr Category Date Time Status Patient Status [ADT] Routine ADT 05/12/19 10:36 Active Patient Status [ADT] Routine ADT 05/12/19 15:18 Ordered EKG Documentation Completion [RC] STAT Care 05/12/19 08:15 Active Oxygen Therapy [RC] PRN Care 05/12/19 15:18 Ordered Up ad Mila [RC] ASDIRECTED Care 05/12/19 15:18 Ordered VTE/DVT Education [RC] PER UNIT ROUTINE Care 05/12/19 15:18 Ordered Vital Signs [RC] Q4H Care 05/12/19 15:18 Ordered Consult to Case Management/Lease Picker [CONS] Cons 05/12/19 15:18 Ordered Routine PT Evaluation and Treatment [CONS] Routine Cons 05/12/19 15:18 Ordered Regular Diet [DIET] Diet 05/12/19 Dinner Ordered BASIC METABOLIC PANEL,BMP [CHEM] AM Lab 05/13/19 05:11 Ordered CBC WITH AUTO DIFF [HEME] AM Lab 05/13/19 05:11 Ordered MAGNESIUM [CHEM] AM Lab 05/13/19 05:11 Ordered Acetaminophen [Tylenol] Med 05/12/19 15:18 Ordered 650 mg PO Q4H PRN Bisacodyl [Dulcolax] Med 05/12/19 11:46 Active 5 mg PO DAILY PRN Calcium Carbonate/Vitamin D3 [Calcium Carbonate/Vitamin Med 05/12/19 20:00 Active D 1250 MG-200 Unit] 1 tab PO BID Carvedilol [Coreg] Med 05/12/19 18:00 Active 12.5 mg PO BIDMEALS Flecainide [Tambocor] Med 05/12/19 20:00 Active 100 mg PO BID HYDROmorphone [Dilaudid] Med 05/12/19 15:18 Ordered 0.25 mg IVPUSH Q2H PRN Ondansetron [Zofran] Med 05/12/19 15:18 Ordered 4 mg IV Q4H PRN Pantoprazole [ProTONIX] Med 05/12/19 11:40 Active 40 mg PO ACBREAKFAST Polyethylene Glycol 3350 [MiraLAX] Med 05/13/19 08:00 Active 17 gm PO DAILY Sodium Chloride 0.9% [Saline Flush] Med 05/12/19 08:12 Active 10 ml FLUSH ASDIRECTED PRN cefTRIAXone [Rocephin] Med 05/13/19 08:00 Active 1 gm IVPUSH DAILY Anticoagulation Contraindications VTE [AST] Per Unit Oth 05/12/19 15:18 Ordered Routine Peripheral IV Insertion Adult [OM.PC] Routine Oth 05/12/19 08:13 Ordered Resuscitation Status Routine Resus Stat 05/12/19 15:18 Ordered Medication Orders Acetaminophen (Tylenol) 650 mg PO Q4H PRN PRN Reason: Pain (Mild 1-3)/fever Bisacodyl (Dulcolax) 5 mg PO DAILY PRN PRN Reason: Constipation Calcium Carbonate (Calcium Carbonate/Vitamin D 1250 Mg-200 Unit) 1 tab PO BID [facility] Carvedilol (Coreg) 12.5 mg PO BIDMEALS [facility] Ceftriaxone Sodium (Rocephin) 1 gm IVPUSH DAILY [facility] Flecainide Acetate (Tambocor) 100 mg PO BID [facility] Hydromorphone HCl (Dilaudid) 0.25 mg IVPUSH Q2H PRN PRN Reason: Pain (severe 7-10) Ondansetron HCl (Zofran) 4 mg IV Q4H PRN PRN Reason: Nausea/Vomiting Pantoprazole Sodium (Protonix) 40 mg PO ACBREAKFAST [facility] Last Admin: 05/12/19 12:45 Dose: 40 mg Polyethylene Glycol (Miralax) 17 gm PO DAILY [facility] Sodium Chloride (Saline Flush) 10 ml FLUSH ASDIRECTED PRN PRN Reason: Keep Vein Open
[2019-05-12] MEDS: Carvedilol 12.5 MG Tab PO SCH (19:01)
[2019-05-12] MEDS: Flecainide 50 MG Tab PO SCH (20:14)
[2019-05-12] MEDS: Calcium Carbonate/Vitamin D3 1250 MG-200 Unit Tab PO SCH (20:15)
[2019-05-13 06:59] LABS: ANION GAP 11.3 mmol/L (10-20)
[2019-05-13] MEDS: cefTRIAXone 1 GM Vial IVPUSH SCH (07:37)
[2019-05-13] MEDS: Calcium Carbonate/Vitamin D3 1250 MG-200 Unit Tab PO SCH ×2 (07:37→20:42)
[2019-05-13] MEDS: Flecainide 50 MG Tab PO SCH ×2 (07:37→20:41)
[2019-05-13] MEDS: Carvedilol 12.5 MG Tab PO SCH (07:38)
[2019-05-13] MEDS: Pantoprazole 40 MG Tab.CR PO SCH (07:38)
[2019-05-13] MEDS: Polyethylene Glycol 3350 Powder 17 GM Packet PO SCH (07:39)
--- NOTE | 2019-05-13 09:19 | PCM.PN ---
- General Info Date of Service: 05/13/19 Admission Dx/Problem (Free Text): Patient is doing good. She denies any fever or dysuria cough or dyspnea. Stomach is doing better. Hasn't passed any bowel movements. No vomiting. Blood pressure running a bit low after we switched her medicine. Hasn't been walking around too much, PT hasn't been by. Blood pressures running 90s over 60s she's been afebrile her oxygen and pulse are normal. Heart and lungs clear to auscultation abdomen soft nontender chimneys warm well perfused. #1. Chronic GI upset peptic ulcer disease versus possible neoplasia. Stop meloxicam, Tylenol as needed, continue Protonix, we'll try to Hemoccult stool but no BMs here does not appear to be actively bleeding. We'll follow-up with PCP outpatient discussed EGD. #2. Hyponatremia has improved with stopping hydrochlorothiazide and are better. Blood pressure running a bit low on Coreg we will decrease dose to 6.25 twice a day #3. Her pyuria and possible pneumonitis by CT or nonspecific. Continue Rocephin for now, if she completes three or four doses here this should be enough and in asymptomatic afebrile patient. #4. Incidental breast nodules. She notes some history of this. She'll need to review with her primary. #5. Incidental hip effusion, again asymptomatic, unknown clinical significance. - Patient Data Vitals - Most Recent: Last Vital Signs Temp 36.9 C 05/13/19 06:00 Pulse 62 05/13/19 07:38 Resp 16 05/13/19 06:00 BP 102/54 L 05/13/19 07:38 Pulse Ox 93 L 05/13/19 06:00 Weight - Most Recent: 42.638 kg I&O - Last 24 Hours: Intake & Output 05/12/19 05/13/19 05/13/19 22:59 06:59 14:59 Intake Total 200 1899 240 Output Total 400 400 Balance -200 1499 240 Lab Results Last 24 Hours: Laboratory Results - last 24 hr 05/12/19 05/13/19 05/13/19 Range/Units 10:09 06:20 06:20 WBC 9.8 (4.0-10.0) x10^3/uL RBC 3.74 L (4.00-5.50) x10^6/uL Hgb 12.1 D (12.0-16.0) g/dL Hct 34.7 (33.0-47.0) % MCV 92.8 (78.0-93.0) fL MCH 32.4 H (26.0-32.0) pg MCHC 34.9 (32.0-36.0) g/dL RDW Coeff of Altagracia 11.9 (10.0-15.0) % Plt Count 416 H (130-400) x10^3/uL Neut % (Auto) 71.6 (50.0-80.0) % Lymph % (Auto) 15.5 L (25.0-50.0) % [place] % (Auto) 11.3 H (2.0-11.0) % Eos % (Auto) 1.3 (0.0-4.0) % Baso % (Auto) 0.3 (0.2-1.2) % Sodium 134 L (136-145) mmol/L Potassium 5.3 H (3.5-5.1) mmol/L Chloride 98 (98-107) mmol/L Carbon Dioxide 30 (21-32) mmol/L Anion Gap 11.3 (10-20) mmol/L BUN 24 H (7-18) mg/dL Creatinine 1.1 H (0.55-1.02) mg/dL Est Cr Clr Drug Dosing 25.62 mL/min Estimated GFR (MDRD) 47 Glucose 90 (74-106) mg/dL Calcium 9.3 (8.5-10.1) mg/dL Magnesium 1.8 (1.8-2.4) mg/dL Urine Color Yellow (YELLOW) Urine Appearance Cloudy H (CLEAR) Urine pH 6.5 (5.0-8.0) Ur Specific [place] 1.010 Urine Protein Negative (NEGATIVE) mg/dL Urine Glucose (UA) Negative (NEGATIVE) mg/dL Urine Ketones Negative (NEGATIVE) mg/dL Urine Occult Blood Trace-lysed H (NEGATIVE) Urine Nitrite Positive H (NEGATIVE) Urine Bilirubin Negative (NEGATIVE) Urine Urobilinogen 0.2 (0.2) EU/dL Ur Leukocyte Esterase Small H (NEGATIVE) Urine RBC 5-10 H (NOT SEEN) /HPF Urine WBC 10-20 H (NOT SEEN) /HPF Ur Squamous Epith Cells Few H (NEGATIVE) /HPF Urine Bacteria Moderate H (NEGATIVE) /HPF Urine Mucus Few H (NEGATIVE) /LPF Med Orders - Current: Current Medications Acetaminophen (Tylenol) 650 mg PO Q4H PRN PRN Reason: Pain (Mild 1-3)/fever Bisacodyl (Dulcolax) 5 mg PO DAILY PRN PRN Reason: Constipation Calcium Carbonate (Calcium Carbonate/Vitamin D 1250 Mg-200 Unit) 1 tab PO BID [facility] Last Admin: 05/13/19 07:37 Dose: 1 tab Carvedilol (Coreg) 6.25 mg PO BIDMEALS [facility] Ceftriaxone Sodium (Rocephin) 1 gm IVPUSH DAILY [facility] Last Admin: 05/13/19 07:37 Dose: 1 gm Flecainide Acetate (Tambocor) 100 mg PO BID [facility] Last Admin: 05/13/19 07:37 Dose: 100 mg Hydromorphone HCl (Dilaudid) 0.25 mg IVPUSH Q2H PRN PRN Reason: Pain (severe 7-10) Ondansetron HCl (Zofran) 4 mg IV Q4H PRN PRN Reason: Nausea/Vomiting Pantoprazole Sodium (Protonix) 40 mg PO ACBREAKFAST [facility] Last Admin: 05/13/19 07:38 Dose: 40 mg Polyethylene Glycol (Miralax) 17 gm PO DAILY [facility] Last Admin: 05/13/19 07:39 Dose: 17 gm Sodium Chloride (Saline Flush) 10 ml FLUSH ASDIRECTED PRN PRN Reason: Keep Vein Open Discontinued Medications Carvedilol (Coreg) 12.5 mg PO BIDM [facility] Last Admin: 05/12/19 18:56 Dose: Not Given Carvedilol (Coreg) 12.5 mg PO BIDMEALS [facility] Last Admin: 05/13/19 07:38 Dose: 12.5 mg Ceftriaxone Sodium (Rocephin) 2 gm IVPUSH STAT ONE Stop: 05/12/19 10:30 Last Admin: 05/12/19 10:40 Dose: 2 gm Sodium Chloride (Normal Saline) 1,000 mls @ 500 mls/hr IV .BOLUS ONE Stop: 05/12/19 10:15 Last Admin: 05/12/19 08:33 Dose: 500 mls/hr Iopamidol (Isovue-300 (61%)) 100 ml IVPUSH ONETIME ONE Stop: 05/12/19 09:22 Last Admin: 05/12/19 09:30 Dose: 100 ml Non-Formulary Medication (Bisacodyl [Correctol]) 5 mg PO DAILY PRN PRN Reason: Constipation - Problem List Review Problem List Initiated/Reviewed/Updated: Yes - My Orders Last 24 Hours: My Active Orders 05/12/19 11:40 Pantoprazole [ProTONIX] 40 mg PO ACBREAKFAST 05/12/19 11:46 Bisacodyl [Dulcolax] 5 mg PO DAILY PRN 05/12/19 15:18 Patient Status [ADT] Routine Oxygen Therapy [RC] PRN Up ad Mila [RC] ASDIRECTED VTE/DVT Education [RC] PER UNIT ROUTINE Vital Signs [RC] Q4H Consult to Case Management/Steam Room Attendant [CONS] Routine PT Evaluation and Treatment [CONS] Routine Acetaminophen [Tylenol] 650 mg PO Q4H PRN HYDROmorphone [Dilaudid] 0.25 mg IVPUSH Q2H PRN Ondansetron [Zofran] 4 mg IV Q4H PRN Anticoagulation Contraindications VTE [AST] Per Unit Routine Resuscitation Status Routine 05/12/19 20:00 Calcium Carbonate/Vitamin D3 [Calcium Carbonate/Vitamin D 1250 MG-200 Unit] 1 tab PO BID Flecainide [Tambocor] 100 mg PO BID 05/12/19 Dinner Regular Diet [DIET] 05/13/19 08:00 Polyethylene Glycol 3350 [MiraLAX] 17 gm PO DAILY cefTRIAXone [Rocephin] 1 gm IVPUSH DAILY 05/13/19 09:07 Fecal Occult Bld Scn Imm [RC] ASDIRECTED 05/13/19 18:00 Carvedilol [Coreg] 6.25 mg PO BIDMEALS
[2019-05-13] MEDS: Carvedilol 6.25 MG Tab PO SCH (18:12)
[2019-05-14] MEDS: Pantoprazole 40 MG Tab.CR PO SCH (06:06)
[2019-05-14] MEDS: Carvedilol 6.25 MG Tab PO SCH (08:26)
[2019-05-14] MEDS: Polyethylene Glycol 3350 Powder 17 GM Packet PO SCH (08:26)
[2019-05-14] MEDS: Flecainide 50 MG Tab PO SCH (08:26)
[2019-05-14] MEDS: Calcium Carbonate/Vitamin D3 1250 MG-200 Unit Tab PO SCH (08:26)
[2019-05-14] MEDS: cefTRIAXone 1 GM Vial IVPUSH SCH (08:29)
[2019-05-14 11:44] VITALS: BP 110/65; PULSE 65
--- NOTE | 2019-05-15 06:26 | DISCH ---
PRIMARY DISCHARGE DIAGNOSES: 1. Hyponatremia, probably due to hydrochlorothiazide. 2. Stomach pain, possibly ulcer versus gastritis from NSAIDs, that was stopped. 3. Urinary tract infection. Culture does not appear to have returned, treated with IV Rocephin and symptoms improved. 4. Right hip effusion. The patient has had some right hip pain and arthritis for years, it is not worse. 5. Incidental breast nodules. 6. Smoking. 7. Essential hypertension, now on Coreg, dose had to be reduced, but doing well. 8. Remote history of supraventricular tachycardia on flecainide. 9. Elevated alkaline phosphatase. The patient has had since at least 2013 and had declined an ultrasound. 10.Osteoporosis. REASON FOR ADMISSION: On the date of admission, this 83-year-old female who has been sort of reluctant to medical care over the years, comes in with stomach pain. She was worried it was due to her hydrochlorothiazide. She was not having any melena or black stools. She did have lab work showing her sodium to be down to 130. Her hemoglobin was 13.9 and remained stable. Actually, she was sort of constipated, but did eventually have a bowel movement with MiraLAX, which was Hemoccult negative. White count was 14.5, and urine was positive for infection with 5 to 10 rbc's and 10 to 20 wbc's. She was treated with 3 doses of IV Rocephin. She was not having any pain with urination on discharge. Her lipase was normal at 217, but her TSH was mildly elevated at 5.1. Otherwise, she was not having any breathing trouble. She admits she continues to smoke and states she has a chronic cough, but it has not gotten any worse. She had a CT during her stay due to her symptoms, did show an interstitial pneumonia-type pattern with some bronchial wall thickening, but no pleural or pericardial effusions. She did have significant wall thickening and edema in the lesser curvature of the stomach, with at least 2 areas of ulceration, and these findings could be related to underlying malignancy, which was discussed with her and she stated, "my daughter had cancer and I not sure I would even want to go through that." Otherwise, she did have some chronic remodeling of the femoral head which could be from prior trauma or vascular necrosis with that right hip effusion and advanced degenerative changes noted. Otherwise, the patient also had a couple of breast enhancing masses, for which mammogram is recommended. However, the patient has been hesitant to do these tests in the past per her primary care. The patient's meloxicam was stopped along with her hydrochlorothiazide. She was started on Protonix. Blood counts were stable. She was feeling better and she was up working with therapies. They felt she was at her baseline. She was deemed to be stable for discharge. Her creatinine was 1.1 at the time of discharge, BUN was 24. Her potassium went up slightly to 5.3, but she got no supplements. Her sodium was 134. Liver enzymes were normal except the alkaline phosphatase, which is chronically elevated was up to 154. PHYSICAL EXAMINATION: VITAL SIGNS: At the time of discharge, her temperature 97.7, pulse 65, blood pressure 110/65, respiratory rate 16, O2 95% on room air. GENERAL: She is in no acute distress. HEART: Regular rate and rhythm. S1, S2 without murmur. LUNGS: Lung sounds were decreased with some rhonchi bilaterally, but no crackles or wheezes. ABDOMEN: Nondistended, nontender. EXTREMITIES: Warm and dry, no edema. MENTAL STATUS: She is alert, she is orientated x3. She is answering questions appropriately. DISCHARGE PLANS AND INSTRUCTIONS: She will follow up with Magaly Kelley in the clinic in 1 to 2 weeks for a BMP and CBC, and for further scheduling of an EGD as she does want to think about it. Coreg will be 3.125 mg twice daily, and hydrochlorothiazide again was stopped with meloxicam. She is told to take Tylenol instead for pain. She declined home health. Greater than 30 minutes spent on the discharge process. MKA: 05/14/2019 13:16:35 MODL: 05/15/2019 06:15:46 /[id number]
== END 2019-05-14 11:00 | disposition home or self-care (01) | DRG 690 ==
LOC: VM.ED 07:53 → VM.MS 10:36
PROVIDERS: ADMIT Family Medicine; ATTEND Family Medicine
DX: N39.0 Urinary tract infection, site not specified (principal); E87.1 Hypo-osmolality and hyponatremia; M25.451 Effusion, right hip; M81.0 Age-related osteoporosis without current pathological fracture; R74.8 Abnormal levels of other serum enzymes; I10 Essential (primary) hypertension; K59.00 Constipation, unspecified; N63.0 Unspecified lump in unspecified breast; G89.29 Other chronic pain; M54.9 Dorsalgia, unspecified; F17.210 Nicotine dependence, cigarettes, uncomplicated; M54.5 Low back pain; M19.90 Unspecified osteoarthritis, unspecified site; F32.9 Major depressive disorder, single episode, unspecified; Z90.49 Acquired absence of other specified parts of digestive tract; F41.9 Anxiety disorder, unspecified; Z88.0 Allergy status to penicillin; Z79.82 Long term (current) use of aspirin; Z79.899 Other long term (current) drug therapy
CPT/HCPCS: 36415; 71260; 74019; 74177; 80053; 81001; 82150; 83690; 83735; 84100; 84443; 84484; 85025; 85610; 86140; 93005; 93010; 96360; 96361; 99284; 99285; J7030; Q9967; 80048; 96374; 97161-GP; A9270-GY; G0328; J0696

== ENCOUNTER 2019-09-04 16:48 | Inpatient (IN) | payer MEDICARE, BC ==
--- NOTE | 2019-09-04 16:58 | EDM.PDOC ---
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 PT unable to ambulate at this time due to pain and weakness. Lower Back Pain Score (Numeric/FACES): 10 - Related Data Allergies Allergy/AdvReac Type Severity Reaction Status Date / Time Penicillins Allergy Rash Verified 09/04/19 16:57 Home Meds: Home Meds Bisacodyl [Correctol] 5 mg PO DAILY PRN 04/04/17 [History] Flecainide [Tambocor] 100 mg PO BID 04/04/17 [History] Multivitamin [Multivitamins] 1 cap PO DAILY 04/04/17 [History] Calcium Carbonate/Vitamin D3 [Calcium Carbonate/Vitamin D 600 MG-200 Unit] 1 tab PO BID 05/12/19 [History] Losartan [Cozaar] 100 mg PO DAILY 05/12/19 [History] Polyethylene Glycol 3350 [MiraLAX] 2 tbs PO DAILY 05/12/19 [History] carvediloL [Coreg] 3.125 mg PO BIDMEALS #30 tablet 05/14/19 [Rx] Omeprazole Magnesium [Prilosec Otc] 20 mg PO DAILY 09/04/19 [History] Past Medical History HEENT History: Reports: Other (See Below) Other HEENT History: otalgia of left ear Cardiovascular History: Reports: Hypertension, Other (See Below) Other Cardiovascular History: PSVT Gastrointestinal History: Reports: Chronic Constipation Musculoskeletal History: Reports: Back Pain, Chronic, Osteoarthritis, Osteoporosis, Other (See Below) Other Musculoskeletal History: polio Psychiatric History: Reports: Anxiety, Depression, Other (See Below) Other Psychiatric History: dysthymic disorder - Past Surgical History GI Surgical History: Reports: Appendectomy Female Surgical History: Reports: Hysterectomy, Other (See Below) Other Female Surgeries/Procedures: lumpectomy of breast(benign) Oncologic Surgical History: Reports: Lumpectomy Social & Family History - Family History Family Medical History: Noncontributory - Caffeine Use Caffeine Use: Reports: Coffee ED ROS GENERAL - Review of Systems Review Of Systems: See Below Constitutional: Reports: Weakness HEENT: Reports: No Symptoms Respiratory: Reports: No Symptoms Cardiovascular: Reports: No Symptoms Endocrine: Reports: No Symptoms GI/Abdominal: Reports: No Symptoms : Reports: No Symptoms Musculoskeletal: Reports: Other (lower back pain ) Skin: Reports: No Symptoms Neurological: Reports: No Symptoms ED EXAM, GENERAL - Physical Exam Exam: See Below Free Text/Narrative:: l spine x ray with no acute findings, chest x ray noted basal opacities that could obscure infiltrates. Pt with wbc at 14 with bands 9, did given rocephin tonight. Will admit obs tonight for weakness and suspension of infiltrates. Exam Limited By: No Limitations General Appearance: Alert, WD/WN, No Apparent Distress Ears: Normal External Exam Nose: Normal Inspection Throat/Mouth: Normal Inspection, Normal Lips, Normal Teeth, Normal Gums, Normal Oropharynx, Normal Voice, No Airway Compromise Head: Atraumatic, Normocephalic Neck: Normal Inspection, Supple, Non-Tender, Full Range of Motion Respiratory/Chest: No Respiratory Distress, Normal Breath Sounds, No Accessory Muscle Use, Chest Non-Tender Cardiovascular: Normal Peripheral Pulses Course - Vital Signs Last Recorded V/S: Last Vital Signs Temp 36.8 C 09/04/19 18:52 Pulse 99 09/04/19 18:52 Resp 16 09/04/19 18:52 BP 166/87 H 09/04/19 18:52 Pulse Ox 93 L 09/04/19 18:53 - Orders/Labs/Meds Orders: Active Orders 24 hr Category Date Time Status Insert Francisco Catheter [Insert Urinary Catheter] [OM.PC] Care 09/04/19 18:00 Ordered Q24H Oxygen Therapy, ED [RC] ASDIRECTED Care 09/04/19 18:53 Active Urinary Catheter Assessment [RC] ASDIRECTED Care 09/04/19 18:47 Active CULTURE BLOOD [BC] Stat Lab 09/04/19 18:20 Received CULTURE BLOOD [BC] Stat Lab 09/04/19 18:26 Received Sodium Chloride 0.9% [Saline Flush] Med 09/04/19 18:12 Active 10 ml FLUSH ASDIRECTED PRN Blood Culture x2 Reflex Set [OM.PC] Stat Oth 09/04/19 18:10 Ordered Peripheral IV Insertion Adult [OM.PC] Routine Oth 09/04/19 18:12 Ordered Medication Orders Sodium Chloride (Saline Flush) 10 ml FLUSH ASDIRECTED PRN PRN Reason: Keep Vein Open Labs: Laboratory Tests 09/04/19 09/04/19 09/04/19 Range/Units 17:20 17:20 17:20 WBC 14.1 H (4.0-10.0) x10^3/uL RBC 4.62 (4.00-5.50) x10^6/uL Hgb 14.4 D (12.0-16.0) g/dL Hct 42.9 (33.0-47.0) % MCV 92.9 (78.0-93.0) fL MCH 31.2 (26.0-32.0) pg MCHC 33.6 (32.0-36.0) g/dL RDW Coeff of Altagracia 12.1 (10.0-15.0) % Plt Count 367 (130-400) x10^3/uL Add Manual Diff Yes Neutrophils % (Manual) 68 (50-80) % Band Neutrophils % 9 H (0-6) % Lymphocytes % (Manual) 12 L (25-50) % Monocytes % (Manual) 10 (2-11) % Eosinophils % (Manual) 1 (0-4) % Hypersegmented Neuts Few H Platelet Estimate Adequate Sodium 140 (136-145) mmol/L Potassium 3.5 (3.5-5.1) mmol/L Chloride 100 (98-107) mmol/L Carbon Dioxide 28 (21-32) mmol/L Anion Gap 15.5 (10-20) mmol/L BUN 19 H (7-18) mg/dL Creatinine 0.8 (0.55-1.02) mg/dL Est Cr Clr Drug Dosing 35.98 mL/min Estimated GFR (MDRD) > 60 Glucose 96 (74-106) mg/dL Lactic Acid 1.5 (0.4-2.0) mmol/L Calcium 9.0 (8.5-10.1) mg/dL Urine Color (YELLOW) Urine Appearance (CLEAR) Urine pH (5.0-8.0) Ur Specific [place] Urine Protein (NEGATIVE) mg/dL Urine Glucose (UA) (NEGATIVE) mg/dL Urine Ketones (NEGATIVE) mg/dL Urine Occult Blood (NEGATIVE) Urine Nitrite (NEGATIVE) Urine Bilirubin (NEGATIVE) Urine Urobilinogen (0.2) EU/dL Ur Leukocyte Esterase (NEGATIVE) Urine RBC (NOT SEEN) /HPF Urine WBC (NOT SEEN) /HPF Ur Squamous Epith Cells (NEGATIVE) /HPF Urine Bacteria (NEGATIVE) /HPF Urine Mucus (NEGATIVE) /LPF 09/04/19 Range/Units 17:50 WBC (4.0-10.0) x10^3/uL RBC (4.00-5.50) x10^6/uL Hgb (12.0-16.0) g/dL Hct (33.0-47.0) % MCV (78.0-93.0) fL MCH (26.0-32.0) pg MCHC (32.0-36.0) g/dL RDW Coeff of Altagracia (10.0-15.0) % Plt Count (130-400) x10^3/uL Add Manual Diff Neutrophils % (Manual) (50-80) % Band Neutrophils % (0-6) % Lymphocytes % (Manual) (25-50) % Monocytes % (Manual) (2-11) % Eosinophils % (Manual) (0-4) % Hypersegmented Neuts Platelet Estimate Sodium (136-145) mmol/L Potassium (3.5-5.1) mmol/L Chloride (98-107) mmol/L Carbon Dioxide (21-32) mmol/L Anion Gap (10-20) mmol/L BUN (7-18) mg/dL Creatinine (0.55-1.02) mg/dL Est Cr Clr Drug Dosing mL/min Estimated GFR (MDRD) Glucose (74-106) mg/dL Lactic Acid (0.4-2.0) mmol/L Calcium (8.5-10.1) mg/dL Urine Color Light yellow (YELLOW) Urine Appearance Slightly cloudy H (CLEAR) Urine pH 5.5 (5.0-8.0) Ur Specific [place] 1.010 Urine Protein Negative (NEGATIVE) mg/dL Urine Glucose (UA) Negative (NEGATIVE) mg/dL Urine Ketones Negative (NEGATIVE) mg/dL Urine Occult Blood Trace-lysed H (NEGATIVE) Urine Nitrite Negative (NEGATIVE) Urine Bilirubin Negative (NEGATIVE) Urine Urobilinogen 0.2 (0.2) EU/dL Ur Leukocyte Esterase Negative (NEGATIVE) Urine RBC 5-10 H (NOT SEEN) /HPF Urine WBC 0-5 (NOT SEEN) /HPF Ur Squamous Epith Cells Few H (NEGATIVE) /HPF Urine Bacteria Rare (NEGATIVE) /HPF Urine Mucus Not seen (NEGATIVE) /LPF Meds: Medications Generic Name Dose Route Start Last Admin Trade Name Freq PRN Reason Stop Dose Admin Sodium Chloride 10 ml 09/04/19 18:12 Saline Flush FLUSH ASDIRECTED PRN Keep Vein Open Discontinued Medications Generic Name Dose Route Start Last Admin Trade Name Freq PRN Reason Stop Dose Admin Ceftriaxone Sodium 1 gm 09/04/19 18:25 09/04/19 18:26 Rocephin IVPUSH 09/04/19 18:26 1 gm STAT ONE Administration Oxycodone/Acetaminophen 1 tab 09/04/19 17:16 09/04/19 17:23 Percocet 325-5 Mg PO 09/04/19 17:17 1 tab ONETIME ONE Administration Departure - Departure Time of Disposition: 19:29 Disposition: Refer to Observation Condition: Fair Clinical Impression: Pneumonia - Discharge Information - My Orders Last 24 Hours: My Active Orders 09/04/19 18:00 Insert Francisco Catheter [Insert Urinary Catheter] [OM.PC] Q24H 09/04/19 18:10 Blood Culture x2 Reflex Set [OM.PC] Stat 09/04/19 18:12 Sodium Chloride 0.9% [Saline Flush] 10 ml FLUSH ASDIRECTED PRN Peripheral IV Insertion Adult [OM.PC] Routine 09/04/19 18:20 CULTURE BLOOD [BC] Stat 09/04/19 18:26 CULTURE BLOOD [BC] Stat 09/04/19 18:47 Urinary Catheter Assessment [RC] ASDIRECTED 09/04/19 18:53 Oxygen Therapy, ED [] ASDIRECTED - Assessment/Plan Last 24 Hours: My Active Orders 09/04/19 18:00 Insert Francisco Catheter [Insert Urinary Catheter] [OM.PC] Q24H 09/04/19 18:10 Blood Culture x2 Reflex Set [OM.PC] Stat 09/04/19 18:12 Sodium Chloride 0.9% [Saline Flush] 10 ml FLUSH ASDIRECTED PRN Peripheral IV Insertion Adult [OM.PC] Routine 09/04/19 18:20 CULTURE BLOOD [BC] Stat 09/04/19 18:26 CULTURE BLOOD [BC] Stat 09/04/19 18:47 Urinary Catheter Assessment [RC] ASDIRECTED 09/04/19 18:53 Oxygen Therapy, ED [RC] ASDIRECTED
[2019-09-04] MEDS ORDERED: Acetaminophen/oxyCODONE 325-5 MG Tab PO ONE (17:16)
[2019-09-04 17:38] LABS: CHLORIDE,CL 100 mmol/L (98-107); SODIUM,NA 140 mmol/L (136-145)
[2019-09-04 17:43] LABS: ANION GAP 15.5 mmol/L (10-20)
--- NOTE | 2019-09-04 18:03 | CR ---
[id number] RAD/RAD Lumbar Spine 2-3V EXAM: LUMBAR SPINE 3 VIEWS INDICATION: LOW BACK PAIN POST FALL COMPARISON: None. DISCUSSION: Osteopenia and scoliosis limit assessment for an acute fracture. No acute fracture is identified. There is mild to moderate convex right curvature centered in the mid lumbar spine. Moderate to advanced degenerative disc disease throughout the lumbar spine. IMPRESSION: 1. Moderate to advanced lumbar spondylosis. 2. No acute fracture is identified. Micah Quintero MD 09/04/19 1455 Thank you for allowing us to participate in the care of your patient.
[2019-09-04] MEDS ORDERED: cefTRIAXone 1 GM Vial IVPUSH ONE (18:25)
--- NOTE | 2019-09-04 19:11 | CR ---
[id number] RAD/RAD Chest PA or AP 1V EXAM: FRONTAL CHEST INDICATION: Shortness of breath. COMPARISON: None. DISCUSSION: Chronic obstructive pulmonary disease. Peripheral and basal predominant interstitial opacities suggestive of fibrosis/interstitial lung disease. These changes could obscure early infiltrates or other pathology. Cardiomegaly without evidence of congestive heart failure. IMPRESSION: 1. Chronic obstructive pulmonary disease and sequela of chronic interstitial lung disease. No definite acute findings. 2. Cardiomegaly without evidence of pulmonary edema. Micah Quintero MD 09/04/19 [id number] Thank you for allowing us to participate in the care of your patient.
[2019-09-04] MEDS: fentaNYL 100 MCG/2 ML SDV IVPUSH PRN (20:19)
[2019-09-05] MEDS ORDERED: Bisacodyl 5 MG Tab PO PRN (00:45)
[2019-09-05] MEDS: fentaNYL 100 MCG/2 ML SDV IVPUSH PRN ×2 (01:33→03:32)
[2019-09-05] MEDS: Carvedilol 6.25 MG Tab PO SCH ×3 (02:08→18:44)
[2019-09-05] MEDS ORDERED: Acetaminophen/HYDROcodone 325-5 MG Tab PO PRN ×2 (03:24→11:41)
[2019-09-05] MEDS ORDERED: Ondansetron 4 MG/2 ML SDV IVPUSH STA (03:26)
[2019-09-05] MEDS: Morphine 2 MG/ML Syringe IVPUSH PRN ×3 (07:27→11:34)
[2019-09-05] MEDS: Sodium Chloride 0.9% 10 ML Syringe FLUSH PRN ×4 (07:27→12:18)
[2019-09-05] MEDS: Losartan 50 MG Tab PO SCH (07:29)
[2019-09-05] MEDS: Flecainide 50 MG Tab PO SCH ×2 (07:29→19:24)
[2019-09-05] MEDS: Calcium Carbonate/Vitamin D3 1250 MG-200 Unit Tab PO SCH ×2 (07:30→19:24)
[2019-09-05] MEDS: Omeprazole 20 MG Cap.CR PO SCH (07:32)
[2019-09-05] MEDS: Polyethylene Glycol 3350 Powder 17 GM Packet PO SCH (07:33)
[2019-09-05 07:54] LABS: CHLORIDE,CL 102 mmol/L (98-107); SODIUM,NA 140 mmol/L (136-145)
[2019-09-05 07:55] LABS: ANION GAP 13.9 mmol/L (10-20)
--- NOTE | 2019-09-05 12:12 | PN ---
Progress Note for GAEL BLACKWELL Date: 09/05/2019 Room #: VM.214 CHIEF COMPLAINT: Fall and back pain. HISTORY OF PRESENT ILLNESS: This is an 83-year-old female who lives independently. She does not remember why she fell. She thinks she fell on her back. She had severe pain and was unable to walk. Workup in the emergency room did show an elevated white count of 14,000, but she had no fever, she had not been coughing. She does smoke and has some probable chronic lung disease from that, but is not on any treatments for it. She had x-rays that did not show any lumbar fracture, but due to increased pain, she underwent a pelvic CT which did show a nondisplaced right lateral inferior sacral fracture and a nondisplaced fracture of the right inferior pubic rami. The patient has had 6 mg of IV morphine just since 7 a.m. this morning. She was previously getting IV fentanyl and nothing is really covering her pain. Even lying still, she is still having severe pain. She tells me she is not having any cough. No trouble breathing. No chest pain. She normally has been healthy and avoided medical cares. She in fact had an admission in May for concern for ulcer, but refused to undergo an esophagogastroduodenoscopy. She was started on PPIs and has done well since. Otherwise, she is on medications for hypertension. Also does take flecainide for history of supraventricular tachycardia. She has not been on any current treatments for osteoporosis. OBJECTIVE: Vital Signs: Her temperature 96.3, pulse 95, blood pressure 110/65, respiratory rate 20, O2 of 96% on 2 L. General: She is in no acute distress. Heart: Regular rate and rhythm. S1, S2. Without murmur. Lungs: Lung sounds are clear to auscultation bilaterally without crackles or wheezes. Abdomen: Positive bowel sounds. Soft, nontender. Extremities: Warm and dry. No edema. Mental Status: She is alert. She is orientated x3. She is answering questions, but she does appear mildly sedated. She had just received some morphine. Musculoskeletal: She is sort of writhing in pain with her left hip and knee flexed. She is reporting pain on both sides of her hip areas. She does have some chronic right hip pain and previous arthritis problems there. LABORATORY DATA: Lab work today did show her white count improved down to 10.3, hemoglobin 13.9, platelets 305. Sodium 140, potassium 3.9, chloride 102, bicarb 28, BUN 19, creatinine 0.7, glucose 114, calcium 8.8. ASSESSMENT AND PLAN: 1. Fall with pelvic fracture and sacral fracture, known osteoporosis with severe pain. 2. Leukocytosis. No source of infection noted. We will discontinue the Rocephin. She just got 1 dose. 3. Severe pain due to fracture. We will get her on some scheduled IV Dilaudid 0.5 mg t.i.d. and 1 mg p.r.n. 4. Smoking. 5. History of supraventricular tachycardia. 6. Essential hypertension. We will continue home medications. 7. Peptic ulcer disease. She will continue her PPI. 8. Deep vein thrombosis prophylaxis. I will start her on some Lovenox. 9. Opioid use. We will continue her MiraLax and start her on some senna to avoid constipation. PLAN: At this point, the patient is admitted for acute cares for scheduled IV narcotics. We will get ice pack therapy involved. ER provider did speak with [facility] and they recommended at least a couple of days of bed rest, so we will wait to get PT involved. I will repeat lab work tomorrow. FATIMAH: 09/05/2019 11:50:33 MODL: 09/05/2019 12:04:38 /[id number]
[2019-09-05] MEDS: Enoxaparin 40 MG/0.4 ML Syringe SUBCUT SCH (12:18)
[2019-09-05] MEDS: HYDROmorphone 1 MG/ML Syringe IVPUSH SCH ×3 (12:19→21:52)
--- NOTE | 2019-09-05 13:20 | CR ---
[id number] RAD/RAD Pelvis 1-2V EXAM: AP PELVIS CLINICAL DATA: Fracture. COMPARISON: September 05, 2019 CT at 3:44 AM. FINDINGS: Minimally displaced acute right superior and inferior pubic rami fractures are similar alignment to the prior study. Chronic right hip deformity with collapse and irregularity of the femoral head and enlargement of the right acetabulum is stable. Mild superior subluxation of the femoral head on the right is stable. Mild left hip osteoarthritis. Lower lumbar spondylosis. A right sacral fracture evident on the comparison CT is not visible radiographically. IMPRESSION: 1. Minimally displaced right superior and inferior pubic rami fractures are unchanged in alignment. 2. Chronic deformity of the right hip is unchanged. Micah Quintero MD 09/05/19 0148 Thank you for allowing us to participate in the care of your patient.
[2019-09-05] MEDS: HYDROmorphone 1 MG/ML Syringe IVPUSH PRN ×2 (14:29→18:39)
[2019-09-05] MEDS: Metoclopramide 10 MG/2 ML SDV IVPUSH PRN (18:43)
[2019-09-06] MEDS: HYDROmorphone 1 MG/ML Syringe IVPUSH PRN (01:46)
[2019-09-06] MEDS: Metoclopramide 10 MG/2 ML SDV IVPUSH PRN ×2 (01:47→08:38)
[2019-09-06] MEDS: Sodium Chloride 0.9% 10 ML Syringe FLUSH PRN ×4 (01:50→21:24)
[2019-09-06] MEDS: Calcium Carbonate/Vitamin D3 1250 MG-200 Unit Tab PO SCH ×3 (01:51→21:22)
[2019-09-06 07:21] LABS: ANION GAP 11.9 mmol/L (10-20)
--- NOTE | 2019-09-06 08:34 | CT ---
[id number] CT/CT Pelvis WO IV EXAM: CT Pelvis WO IV INDICATION: PELVIC PAIN POST FALL COMPARISON: May 12, 2019. FINDINGS: There are essentially nondisplaced acute to subacute appearing right superior and inferior pubic rami and right sacral fractures. The sacral fracture extends to the sacroiliac joint. Chronic deformity of the right hip with enlargement and thinning of the acetabulum and irregularity and flattening of the femoral head. There is superior subluxation of the femoral head and a chronic joint effusion. Moderate to advanced lower lumbar spondylosis. The urinary bladder is decompressed by Francisco catheter. Mildly prominent colonic stool volume in the partially imaged colon. Atherosclerotic vascular calcifications. IMPRESSION: 1. Acute nondisplaced right sacral, right superior and inferior pubic rami fractures. 2. Chronic right hip deformity with advanced osteoarthritis and joint effusion. Micah Quintero MD 09/06/19 0833 Thank you for allowing us to participate in the care of your patient.
[2019-09-06] MEDS: Polyethylene Glycol 3350 Powder 17 GM Packet PO SCH (08:37)
[2019-09-06] MEDS: HYDROmorphone 1 MG/ML Syringe IVPUSH SCH ×3 (08:37→21:23)
[2019-09-06] MEDS: Carvedilol 6.25 MG Tab PO SCH ×2 (08:37→21:21)
[2019-09-06] MEDS: Flecainide 50 MG Tab PO SCH ×2 (08:38→21:23)
[2019-09-06] MEDS: Losartan 50 MG Tab PO SCH (08:38)
[2019-09-06] MEDS: Omeprazole 20 MG Cap.CR PO SCH (08:39)
[2019-09-06] MEDS: Sodium Chloride 0.9% 1,000 ML IV SCH (08:42)
[2019-09-06] MEDS ORDERED: Acetaminophen/HYDROcodone 325-10 MG Tab PO PRN (08:45)
[2019-09-06] MEDS: Enoxaparin 40 MG/0.4 ML Syringe SUBCUT SCH (12:26)
[2019-09-06] MEDS ORDERED: HYDROmorphone 1 MG/ML Syringe IVPUSH PRN (15:30)
--- NOTE | 2019-09-06 15:59 | PN ---
Progress Note for GAEL BLACKWELL Date: 09/06/2019 Room #: VM.214 SUBJECTIVE: This is acute day #2 and hospital day #3 on an 83-year-old, initially admitted with observation after a fall, then had severe pain, and was found to have a pelvic fracture by CT. I did a plain x-ray yesterday. The sacral fractures were not evident on the plain film, but she had a minimally displaced right superior and inferior pubic rami fracture as well as her chronic right hip deformity. She feels a lot of pressure down there, but she denies to me that she is constipated. She has a urinary catheter in place. Her initial urine was not infected. She has been afebrile, but has had increasing confusion per the nurses. She has also not been eating and drinking well, but tells me that she feels like eating this morning. Otherwise, overnight, she has received the p.r.n. Dilaudid, now just once, she had 2 doses yesterday. She is on 0.5 schedule t.i.d., so she had a total of 4-1/2 mg in a 24-hour period, but had received over 6 mg of morphine before that. OBJECTIVE: Vital Signs: Her temperature 97, pulse 86, blood pressure 154/81, respiratory rate 18, and O2 of 100 on 3 L. General: She is in no acute distress. She is quite thin and frail. Heart: Regular rate and rhythm. S1, S2 without murmur. Lungs: Lung sounds are clear to auscultation bilaterally without crackles or wheezes. Abdomen: Nondistended and nontender. Extremities: Warm and dry. No edema. Mental Status: She is unaware what day it is. In fact, she asked me twice within about a 30-second period what day it was. She normally lives at home independently. ASSESSMENT AND PLAN: 1. Delirium, likely due to pain medications, maybe some dehydration. We will get her started on some fluids. If things do not improve, I will do an ABG. 2. Fall with pelvic fracture as discussed above, right superior and inferior pubic rami fracture. Recommended to be on bedrest a couple of days per Anamaria per Jered's report. I think she is in too much pain to move around. We will see how today goes, but likely tomorrow, we will get her up and working with therapies. 3. Leukocytosis. No source of infection was identified. She is off antibiotics. We will continue to monitor. 4. Severe pain due to fracture. She seems to be doing better with pain with IV Dilaudid. We will decrease her p.r.n. down to a 0.5 dose as well. 5. Smoking. She is currently not smoking. She states it does not bother her. 6. Bowel prophylaxis. She reports to me she is having bowel movements and she is on a regimen. 7. Deep vein thrombosis prophylaxis. She is on Lovenox. 8. Known peptic ulcer disease or suspected at least. She is continued on her PPI. 9. Essential hypertension. Blood pressures are a little elevated. She is on her home medications. Her pain is likely contributing as well. 10.History of supraventricular tachycardia. She is on flecainide. The Zofran apparently was interacting with that, so she has now p.r.n. Reglan available for nausea. PLAN: At this point, the patient will be started on IV fluids normal saline 100 per hour. We will repeat lab work tomorrow. We will continue pain control, but decrease the p.r.n. Dilaudid. Repeat lab work tomorrow and likely try to get her up and working with therapies. ABGs if confusion continues. MKA: 09/06/2019 15:31:16 MODL: 09/06/2019 15:52:35 /[id number]
[2019-09-07] MEDS: Sodium Chloride 0.9% 10 ML Syringe FLUSH PRN ×2 (03:47→08:36)
[2019-09-07] MEDS: Sodium Chloride 0.9% 1,000 ML IV SCH ×2 (03:49→13:26)
[2019-09-07] MEDS: Omeprazole 20 MG Cap.CR PO SCH (06:52)
[2019-09-07 07:19] LABS: CHLORIDE,CL 105 mmol/L (98-107); SODIUM,NA 142 mmol/L (136-145)
[2019-09-07 07:20] LABS: ANION GAP 15.2 mmol/L (10-20)
[2019-09-07] MEDS ORDERED: HYDROmorphone 1 MG/ML Syringe IVPUSH SCH (08:00)
[2019-09-07] MEDS: Polyethylene Glycol 3350 Powder 17 GM Packet PO SCH (08:35)
[2019-09-07] MEDS: HYDROmorphone 1 MG/ML Syringe IVPUSH SCH (08:35)
[2019-09-07] MEDS: Calcium Carbonate/Vitamin D3 1250 MG-200 Unit Tab PO SCH (08:37)
[2019-09-07] MEDS: Flecainide 50 MG Tab PO SCH (08:37)
[2019-09-07] MEDS: Losartan 50 MG Tab PO SCH (08:37)
[2019-09-07] MEDS: Carvedilol 6.25 MG Tab PO SCH (08:37)
[2019-09-07] MEDS: Enoxaparin 40 MG/0.4 ML Syringe SUBCUT SCH (13:20)
[2019-09-07] MEDS ORDERED: Labetalol 20 MG/4 ML Syringe ONE (15:33)
[2019-09-07 15:35] LABS: ANION GAP 13.9 mmol/L (10-20)
[2019-09-07 15:37] VITALS: BP 172/99; PULSE 87
--- NOTE | 2019-09-07 15:38 | CT ---
[id number] CT/CT Head Stroke Protocol Exam: CT Head Stroke Protocol Clinical Data: NEUROLOGIC DEFICIT COMPARISON: NO PREVIOUS SIMILAR EXAM IS AVAILABLE FINDINGS: A 5 cm left frontoparietal convexity intraparenchymal hematoma is seen with surrounding white matter edema Report was called at the time of the dictation There is intraventricular blood There is minimal blood in the right postcentral sulcus There is left parafalcine hemorrhage There is minimal [id number] midline shift IMPRESSION: LARGE LEFT FRONTOPARIETAL INTRAPARENCHYMAL HEMATOMA SMALL AMOUNT OF SUBARACHNOID BLOOD SMALL AMOUNT OF INTRAVENTRICULAR BLOOD Jadon Washington MD 09/07/19 [id number] Thank you for allowing us to participate in the care of your patient.
[2019-09-07] MEDS ORDERED: Metoclopramide 10 MG Tab PO ONE (15:40)
[2019-09-07] MEDS ORDERED: Metoclopramide 10 MG/2 ML SDV IVPUSH ONE (15:40)
[2019-09-07] MEDS ORDERED: niCARdipine HCl 25 MG in Sodium Chloride 0.9% 240 ML IV SCH (16:00)
--- NOTE | 2019-09-07 17:27 | PCM.DCSUM1 ---
Discharge Summary - Hospital Course Free Text/Narrative:: Contacted by nurse at 3 pm due to a change in status maybe a stroke. R arm and leg are flaccid she was fine at lunch just noticed by PT. They also think she was ok at 2:30. Was on Lovenox for DVT prophylaxis got 40 mg dose at 13:20 is not on ASA or coumadin. BP was ok all morning. Stat CT and stroke code ordered. Lab and EKG ordered. Patient assessed after CT and Radiology staff noted they could see a bleed. GCS was a 15 she was able to answer questions and was alert she was denying headache or vision change. She had BP up to 172/ 99 then 188/104. Contacted [facility] Dr. Case who recommended Nicardipine drip to maintain BP under 140/90 so this was started and transfer to ER then ICU at [facility] for further Care. Her son and DIL arrived and were updated. Daughter Magaly updated by phone she is going [facility]. I did also elect to give her a dose of Reglan 5 mg IV she got this yesterday for nausea I felt this would not make her drowsy and she had a drug interaction with Zofran. Patient is a Code 3 no cpr but discussed that would have surgery if necessary. Troponin mildly elevated at 0.6 and she is a smoker. EKG did show some lateral ST changes with depression I have no previous to compare. She had no chest pain CT impression Large left frontoparietal intraparenchymal Hematoma with small amount of subarachnoid blood and intraventricular blood D-dimer done as part Of stroke labs also positive Diagnosis: Stroke: Yes Modified Sayre Scale: Mod.Sev.Disability ;Unable to Walk/Attend Bodily Needs W/ O Assistance Modified Mattie Scale Score: 4 - Discharge Data Discharge Date: 09/07/19 Discharge Disposition: DC/Tfer to Acute Hospital 02 Condition: Fair - Referral to Home Health Primary Care Physician: Magaly Kelley PA-C - Discharge Diagnosis/Problem(s) (1) Hemorrhagic stroke SNOMED Code(s): 758382202 ICD Code: I61.9 - NONTRAUMATIC INTRACEREBRAL HEMORRHAGE, UNSPECIFIED Status : Acute Priority: High (2) Pelvic fracture SNOMED Code(s): 99131336 ICD Code: S32.9XXA - FRACTURE OF UNSP PARTS OF LUMBOSACRAL SPINE AND PELVIS, INIT Status: Acute Priority: High Qualifiers: Encounter type: initial encounter Pelvic bone location: ischium Fracture type: closed Fracture morphology: unspecified fracture morphology Fracture alignment: nondisplaced Laterality: right Qualified Code(s): S32.601A - Unspecified fracture of right ischium, initial encounter for closed fracture (3) Hypertensive emergency SNOMED Code(s): 893131741237830 ICD Code: I16.1 - HYPERTENSIVE EMERGENCY Status: Acute Priority: High - Patient Summary/Data Consults: Consultations 09/07/19 08:38 PT Evaluation and Treatment [CONS] Routine - Discharge Plan Home Medications: Home Meds Bisacodyl [Correctol] 5 mg PO DAILY PRN 04/04/17 [History] Flecainide [Tambocor] 100 mg PO BID 04/04/17 [History] Multivitamin [Multivitamins] 1 cap PO DAILY 04/04/17 [History] Calcium Carbonate/Vitamin D3 [Calcium Carbonate/Vitamin D 600 MG-200 Unit] 1 tab PO BID 05/12/19 [History] Polyethylene Glycol 3350 [MiraLAX] 2 tbs PO DAILY 05/12/19 [History] carvediloL [Coreg] 3.125 mg PO BIDMEALS #30 tablet 05/14/19 [Rx] Omeprazole Magnesium [Prilosec Otc] 20 mg PO DAILY 09/04/19 [History] Losartan [Cozaar] 100 mg PO DAILY 09/07/19 [History] Forms: ED Department Discharge, Interfacility Transfer EMTALA Referrals: Magaly Kelley PA-C [Primary Care Provider] - - Discharge Summary/Plan Comment DC Time >30 min.: Yes - General Info Date of Service: 09/07/19 - Patient Data Vitals - Most Recent: Last Vital Signs Temp 98.6 F 09/07/19 14:00 Pulse 87 09/07/19 14:00 Resp 20 09/07/19 14:00 BP 172/99 H 09/07/19 14:00 Pulse Ox 88 L 09/07/19 14:00 Weight - Most Recent: 44.316 kg I&O - Last 24 hours: Intake & Output 09/07/19 09/07/19 09/07/19 06:59 14:59 22:59 Intake Total 933 160 Output Total 1000 Balance -67 160 Lab Results - Last 24 hrs: Laboratory Results - last 24 hr 09/07/19 09/07/19 09/07/19 Range/Units 06:28 06:28 15:08 WBC 9.9 9.9 (4.0-10.0) x10^3/uL RBC 3.73 L 3.82 L (4.00-5.50) x10^6/uL Hgb 11.6 L D 11.9 L (12.0-16.0) g/dL Hct 36.1 36.8 (33.0-47.0) % MCV 96.8 H 96.3 H (78.0-93.0) fL MCH 31.1 31.2 (26.0-32.0) pg MCHC 32.1 32.3 (32.0-36.0) g/dL RDW Coeff of Altagracia 11.9 12.0 (10.0-15.0) % Plt Count 241 267 (130-400) x10^3/uL Neut % (Auto) 74.8 72.5 (50.0-80.0) % Lymph % (Auto) 11.2 L 11.7 L (25.0-50.0) % Thomas % (Auto) 13.7 H 15.5 H (2.0-11.0) % Eos % (Auto) 0.1 0.1 (0.0-4.0) % Baso % (Auto) 0.2 0.2 (0.2-1.2) % PT (10.0-12.8) SEC INR (2.0-3.5) APTT (24.0-36.0) SEC D-Dimer, Quantitative (<=0.58) mg/LFEU Sodium 142 (136-145) mmol/L Potassium 4.2 (3.5-5.1) mmol/L Chloride 105 (98-107) mmol/L Carbon Dioxide 26 (21-32) mmol/L Anion Gap 15.2 (10-20) mmol/L BUN 29 H (7-18) mg/dL Creatinine 0.8 (0.55-1.02) mg/dL Est Cr Clr Drug Dosing 36.62 mL/min Estimated GFR (MDRD) > 60 Glucose 99 (74-106) mg/dL Calcium 8.4 L (8.5-10.1) mg/dL POC Troponin I (0.00-0.08) ng/mL POC Result Comm 09/07/19 09/07/19 09/07/19 Range/Units 15:08 15:08 15:17 WBC (4.0-10.0) x10^3/uL RBC (4.00-5.50) x10^6/uL Hgb (12.0-16.0) g/dL Hct (33.0-47.0) % MCV (78.0-93.0) fL MCH (26.0-32.0) pg MCHC (32.0-36.0) g/dL RDW Coeff of Altagracia (10.0-15.0) % Plt Count (130-400) x10^3/uL Neut % (Auto) (50.0-80.0) % Lymph % (Auto) (25.0-50.0) % Thomas % (Auto) (2.0-11.0) % Eos % (Auto) (0.0-4.0) % Baso % (Auto) (0.2-1.2) % PT 10.4 (10.0-12.8) SEC INR 0.9 L (2.0-3.5) APTT 32.1 (24.0-36.0) SEC D-Dimer, Quantitative 3.62 H (<=0.58) mg/LFEU Sodium 143 (136-145) mmol/L Potassium 3.9 (3.5-5.1) mmol/L Chloride 105 (98-107) mmol/L Carbon Dioxide 28 (21-32) mmol/L Anion Gap 13.9 (10-20) mmol/L BUN 28 H (7-18) mg/dL Creatinine 0.9 (0.55-1.02) mg/dL Est Cr Clr Drug Dosing 32.55 mL/min Estimated GFR (MDRD) 60 Glucose 105 (74-106) mg/dL Calcium 8.8 (8.5-10.1) mg/dL POC Troponin I 0.64 H* (0.00-0.08) ng/mL POC Result Comm Called critical res ISRA Results - Last 24 hrs: Microbiology 09/04/19 18:26 Aerobic Blood Culture - Preliminary Blood - Venous - Lab Draw NO GROWTH AFTER 2 DAYS Anaerobic Blood Culture - Preliminary NO GROWTH AFTER 2 DAYS 09/04/19 18:20 Aerobic Blood Culture - Preliminary Blood - Venous NO GROWTH AFTER 2 DAYS Anaerobic Blood Culture - Preliminary NO GROWTH AFTER 2 DAYS Med Orders - Current: Current Medications Discontinued Medications Hydrocodone Bitart/Acetaminophen ([place] 325-5 Mg) 1 tab PO Q3H PRN PRN Reason: Pain Last Admin: 09/05/19 07:30 Dose: 1 tab Hydrocodone Bitart/Acetaminophen ([place] 325-5 Mg) 2 tab PO Q3H PRN PRN Reason: Pain Last Admin: 09/06/19 03:30 Dose: 2 tab Hydrocodone Bitart/Acetaminophen ([place] 325-10 Mg) 1 tab PO Q3H PRN PRN Reason: Pain Last Admin: 09/07/19 08:36 Dose: 1 tab Bisacodyl (Dulcolax) 5 mg PO DAILY PRN PRN Reason: Constipation Last Admin: 09/07/19 08:37 Dose: 5 mg Calcium Carbonate (Calcium Carbonate/Vitamin D 1250 Mg-200 Unit) 1 tab PO BID [facility] Last Admin: 09/07/19 08:37 Dose: 1 tab Carvedilol (Coreg) 3.125 mg PO BIDMEALS [facility] Last Admin: 09/07/19 08:37 Dose: 3.125 mg Ceftriaxone Sodium (Rocephin) 1 gm IVPUSH STAT ONE Stop: 09/04/19 18:26 Last Admin: 09/04/19 18:26 Dose: 1 gm Enoxaparin Sodium (Lovenox) 40 mg SUBCUT Q24H [facility] Last Admin: 09/07/19 13:20 Dose: 40 mg Fentanyl (Sublimaze) 50 mcg IVPUSH Q3H PRN PRN Reason: Pain Last Admin: 09/05/19 03:32 Dose: 50 mcg Flecainide Acetate (Tambocor) 100 mg PO BID [facility] Last Admin: 09/07/19 08:37 Dose: 100 mg Hydromorphone HCl (Dilaudid) 1 mg IVPUSH Q2H PRN PRN Reason: Pain Last Admin: 09/06/19 01:46 Dose: 1 mg Hydromorphone HCl (Dilaudid) 0.5 mg IVPUSH TID [facility] Last Admin: 09/07/19 08:35 Dose: Not Given Hydromorphone HCl (Dilaudid) 0.5 mg IVPUSH Q2H PRN PRN Reason: Pain Last Admin: 09/07/19 03:52 Dose: 0.5 mg Hydromorphone HCl (Dilaudid) 0.5 mg IVPUSH BID [facility] Last Admin: 09/07/19 08:35 Dose: 0.5 mg Sodium Chloride (Normal Saline) 1,000 mls @ 100 mls/hr IV ASDIRECTED [facility] Last Admin: 09/07/19 13:26 Dose: 100 mls/hr Nicardipine HCl 25 mg/ Sodium (Chloride) 250 mls @ 50 mls/hr IV TITRATE [facility]; Protocol Labetalol HCl (Normodyne) Confirm Administered Dose 20 mg .ROUTE .STK-MED ONE Stop: 09/07/19 15:34 Losartan Potassium (Cozaar) 100 mg PO DAILY [facility] Last Admin: 09/07/19 08:37 Dose: 100 mg Metoclopramide HCl (Reglan) 5 mg IVPUSH Q6H PRN PRN Reason: Nausea/Vomiting Last Admin: 09/06/19 08:38 Dose: 5 mg Metoclopramide HCl (Reglan) 5 mg PO ONETIME ONE Stop: 09/07/19 15:41 Metoclopramide HCl (Reglan) 5 mg IVPUSH ONETIME ONE Stop: 09/07/19 15:41 Morphine Sulfate (Morphine) 2 mg IVPUSH Q2H PRN PRN Reason: Pain Last Admin: 09/05/19 11:34 Dose: 2 mg Omeprazole (Omeprazole) 20 mg PO DAILY@0700 [facility] Last Admin: 09/07/19 06:52 Dose: 20 mg Ondansetron HCl (Zofran) 4 mg IVPUSH ONETIME STA Stop: 09/05/19 03:27 Last Admin: 09/05/19 03:35 Dose: 4 mg Oxycodone/Acetaminophen (Percocet 325-5 Mg) 1 tab PO ONETIME ONE Stop: 09/04/19 17:17 Last Admin: 09/04/19 17:23 Dose: 1 tab Polyethylene Glycol (Miralax) 17 gm PO DAILY [facility] Last Admin: 09/07/19 08:35 Dose: 17 gm Senna/Docusate Sodium (Senna Plus) 1 tab PO BID [facility] Last Admin: 09/07/19 08:37 Dose: 1 tab Sodium Chloride (Saline Flush) 10 ml FLUSH ASDIRECTED PRN PRN Reason: Keep Vein Open Last Admin: 09/07/19 08:36 Dose: 10 ml - Exam Quality Assessment: Reports: Supplemental Oxygen
--- NOTE | 2019-09-08 02:16 | PN ---
Progress Note for GAEL BLACKWELL Date: 09/07/2019 Room #: VM.214 SUBJECTIVE: This is acute day #3 and hospital day #4 for an 83-year-old, initially admitted to observation after a fall. Due to increasing pain, she did undergo a CT scan of her pelvis, which did show a fracture. She has been on bedrest, was not eating or drinking well yesterday, was more confused, had been getting more IV narcotics, a total of 1.5 g of scheduled Dilaudid and only 1 mg of p.r.n. This has improved though since admission. She feels like as long as she is not moving, her pain is pretty good. She is less confused today. She is answering all questions appropriately. She is not having any headache. No vision changes. She feels like eating breakfast this morning. OBJECTIVE: Vital Signs: Otherwise, blood pressures have been controlled, 139/89 this morning; pulse 68; temperature is 97.8, respiratory rate is 18, and O2 is 96 on 3 L. General: She is in no acute distress. Heart: Regular rate and rhythm without murmur. Lungs: Lung sounds are clear to auscultation bilaterally without crackles or wheezes. Abdomen: Positive bowel sounds. Soft and nontender. Extremities: Warm and dry. No edema. She is moving them all equally. Mental Status: She is alert. She is orientated x3. She answers all questions appropriately. She normally lives independently at home. ASSESSMENT AND PLAN: 1. Delirium. This was likely due to pain medications and some dehydration. Her initial urinalysis and chest x-ray did not show any infections. These have resolved. No further studies are planned. 2. Fall with pelvic fracture, right superior and inferior pubic rami, minimally displaced. She should be able to get up and work with PT today. We will focus on pain control. She will be weightbearing as tolerated with a walker and standby. 3. Leukocytosis. No source of infection found. She is off antibiotics. 4. Severe pelvic pain due to fracture. I am going to decrease her scheduled Dilaudid to just 0.5 twice daily and the p.r.n. is now 0.5 as well. 5. Smoking. She is not smoking currently. 6. Bowel prophylaxis. She is on a bowel regimen. 7. Deep venous thrombosis prophylaxis. She is on Lovenox. 8. History of peptic ulcer disease. She is on a proton pump inhibitor. 9. Essential hypertension. Blood pressure was a little elevated yesterday but excellent this morning. 10.History of supraventricular tachycardia. She is on flecainide. 11.Nausea, resolved. She did get a dose of Reglan yesterday. PLAN: At this point, the patient will continue acute cares. We will stop IV fluids. We will get her up and working with therapies. We will decrease her IV pain medications, get her to use oral if needed. MKA: 09/07/2019 17:16:40 MODL: 09/08/2019 02:05:46 /[id number]
== END 2019-09-07 16:22 | disposition short-term general hospital (02) | DRG 535 ==
LOC: VM.ED 16:48 → VM.MS 19:29 → OBSVTOIN 09-05 11:39
PROVIDERS: ADMIT Internal Medicine; ATTEND Internal Medicine
DX: J18.9 Pneumonia, unspecified organism (principal); S32.591A Other specified fracture of right pubis, initial encounter for closed fracture; I60.9 Nontraumatic subarachnoid hemorrhage, unspecified; I61.5 Nontraumatic intracerebral hemorrhage, intraventricular; R53.1 Weakness; S32.10XA Unspecified fracture of sacrum, initial encounter for closed fracture; M54.5 Low back pain; S32.601A Unspecified fracture of right ischium, initial encounter for closed fracture; I16.1 Hypertensive emergency; I47.1 Supraventricular tachycardia; W19.XXXA Unspecified fall, initial encounter; K59.09 Other constipation; G89.29 Other chronic pain; M54.9 Dorsalgia, unspecified; M19.90 Unspecified osteoarthritis, unspecified site; Z88.0 Allergy status to penicillin; M81.0 Age-related osteoporosis without current pathological fracture; F41.9 Anxiety disorder, unspecified; F32.9 Major depressive disorder, single episode, unspecified; F34.1 Dysthymic disorder; Z90.49 Acquired absence of other specified parts of digestive tract; Z79.899 Other long term (current) drug therapy; Z90.710 Acquired absence of both cervix and uterus; R40.2414 Glasgow coma scale score 13-15, 24 hours or more after hospital admission; Z87.891 Personal history of nicotine dependence; K27.9 Peptic ulcer, site unspecified, unspecified as acute or chronic, without hemorrhage or perforation; Z79.891 Long term (current) use of opiate analgesic; I10 Essential (primary) hypertension
CPT/HCPCS: 36415 ×2; 51702; 71045; 72100; 72192; 80048 ×2; 81001; 83605; 85025 ×2; 87040 ×2; 99285; A9270 ×8; J0696; J2270 ×3; J2405; J3010 ×3; 70450; 72170; 82962; 84484; 85379; 85610; 85730; 93005; 94760; 97161-GP; J1170; J1650; J2765; J7030

== ENCOUNTER 2020-09-02 07:44 | Emergency (ER) | payer MEDICARE, BC ==
[2020-09-02 08:18] VITALS: BP 97/56; PULSE 109
--- NOTE | 2020-09-02 08:41 | EDM.PDOC ---
ED HPI GENERAL MEDICAL PROBLEM - General Chief Complaint: Respiratory Problem Stated Complaint: ER Time Seen by Provider: 09/02/20 07:44 Source of Information: Reports: Mcfp Records, RN History Limitations: Reports: No Limitations - History of Present Illness INITIAL COMMENTS - FREE TEXT/NARRATIVE: Pt. was noted to be experiencing respiratory distress this AM. She is a resident at [facility]. She currently has covid 19 and yesterday was moved from the covma isolation unit back to her floor. She was noted to begin having some increased work of breathing this AM. Pt. was maintaining O2 saturations in the 60% range on O2 per NC at 4Lmin. Pt. is a code 2, DNR/DNI. orthopedically impaired teacher provider was contacted and advised the patient be brought in to the ER for evaluation. EMS transported the patient. They started her on high flow oxygen per non- rebreather. O2 sat on arrival to ER was 79-80% on high flow O2. She was noted to be minimally responsive with severe respiratory distress with accessory muscle use. 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 Treatments, Oxygen - Related Data Allergies Allergy/AdvReac Type Severity Reaction Status Date / Time Penicillins Allergy Rash Verified 09/04/19 16:57 Home Meds: Home Meds Flecainide [Tambocor] 100 mg PO BID 04/04/17 [History] Multivitamin [Multivitamins] 1 cap PO DAILY 04/04/17 [History] bisacodyL [Correctol] 5 mg PO DAILY PRN 04/04/17 [History] Calcium Carbonate/Vitamin D3 [Calcium Carbonate/Vitamin D 600 MG-200 Unit] 1 tab PO BID 05/12/19 [History] polyethylene glycoL 3350 [MiraLAX] 2 tbs PO DAILY 05/12/19 [History] carvediloL [Coreg] 3.125 mg PO BIDMEALS #30 tablet 05/14/19 [Rx] Omeprazole Magnesium [Prilosec Otc] 20 mg PO DAILY 09/04/19 [History] Losartan [Cozaar] 100 mg PO DAILY 09/07/19 [History] Past Medical History HEENT History: Reports: Other (See Below) Other HEENT History: otalgia of left ear Cardiovascular History: Reports: Hypertension, Other (See Below) Other Cardiovascular History: PSVT Respiratory History: Reports: COPD Gastrointestinal History: Reports: Chronic Constipation Musculoskeletal History: Reports: Back Pain, Chronic, Osteoarthritis, Osteoporosis, Other (See Below) Other Musculoskeletal History: polio Psychiatric History: Reports: Anxiety, Depression, Other (See Below) Other Psychiatric History: dysthymic disorder - Infectious Disease History Infectious Disease History: Reports: Other (See Below) Other Infectious Disease History: Polio - Past Surgical History GI Surgical History: Reports: Appendectomy Female Surgical History: Reports: Hysterectomy, Other (See Below) Other Female Surgeries/Procedures: lumpectomy of breast(benign) Oncologic Surgical History: Reports: Lumpectomy Social & Family History - Family History Family Medical History: No Pertinent Family History - Caffeine Use Caffeine Use: Reports: Coffee ED ROS GENERAL - Review of Systems Review Of Systems: Unable To Obtain Reason Not Obtained: decreased LOC/hypoxia Constitutional: Reports: Fever, Chills, Malaise, Weakness, Fatigue HEENT: Reports: No Symptoms Respiratory: Reports: Shortness of Breath, Wheezing, Cough ED EXAM, GENERAL - Physical Exam Exam: See Below Exam Limited By: Altered Mental Status General Appearance: Obtunded, Severe Distress Head: Atraumatic, Normocephalic Respiratory/Chest: Respiratory Distress, Decreased Breath Sounds, Wheezing, Accessory Muscle Use Cardiovascular: Normal Peripheral Pulses, No Edema, No Murmur GI/Abdominal: Soft, No Distention, No Mass (Female) Exam: Deferred Rectal (Female) Exam: Deferred Extremities: Normal Inspection, No Pedal Edema, Slow Capillary Refill, Pallor Neurological: CN II-XII Intact, Confused, Disoriented Psychiatric: Normal Affect, Anxious Skin Exam: Dry, Intact, Pallor Course - Vital Signs Last Recorded V/S: Last Vital Signs Temp 36.7 C 09/02/20 07:44 Pulse 109 H 09/02/20 07:44 Resp 26 H 09/02/20 07:44 BP 97/56 L 09/02/20 07:44 Pulse Ox 81 L 09/02/20 07:44 Departure - Departure Time of Disposition: 09:00 Disposition: DC/Tfer to [place] [id number] Clinical Impression: Respiratory failure, Hypoxia, COVID-19 with multiple comorbidities - Discharge Information Instructions: Hypoxia Additional Instructions: Start comfort cares. Family has been notified. Sepsis Event Note (ED) - Evaluation Sepsis Screening Result: No Definite Risk - Focused Exam Vital Signs: Vital Signs Temp Pulse Resp BP Pulse Ox 09/02/20 07:44 36.7 C 109 H 26 H 97/56 L 81 L - Problem List Review Problem List Initiated/Reviewed/Updated: Yes - Assessment/Plan Plan: Discussed patient condition at length with daughter, Magaly, who lives in the [facility] area. Decision was made to transfer the patient back to [facility], as she is a code 2. Does not criteria for Bamlanivimab, and due to bed status/current staffing of the floor with their acuity of patients. Pt. was sent back via EMS. All questions were answered.
== END 2020-09-02 08:37 ==
LOC: VM.ED 07:44
DX: U07.1 COVID-19 (principal); J96.90 Respiratory failure, unspecified, unspecified whether with hypoxia or hypercapnia; R09.02 Hypoxemia; I10 Essential (primary) hypertension; J44.9 Chronic obstructive pulmonary disease, unspecified; Z88.0 Allergy status to penicillin; Z79.899 Other long term (current) drug therapy; Z90.710 Acquired absence of both cervix and uterus; Z90.49 Acquired absence of other specified parts of digestive tract
CPT/HCPCS: 99284; 99285